=== PATIENT | female | born 1985 ===

== ENCOUNTER → 2020-02-25 12:57 | Outpatient (BNVA) | payer OTHER, SELFPAY | PROVIDERS: Visit Provider Physician Assistant | DX: Z76.89 Persons encountering health services in other specified circumstances (principal) ==

== ENCOUNTER 2020-03-17 07:04 | Outpatient (REF) | payer OTHER, SELFPAY ==
[2020-03-17 11:16] LABS: MANUAL DIFF FLAG NO
[2020-03-17 11:23] LABS: Basophils Percent Auto 0.6 % (0-2); Eosinophils Absolute Auto 0.4 X10*3/uL (0.0-0.4); Eosinophils Percent Auto 5.5 % (0-4); Hematocrit 41.9 % (37-47); Imm Gran Abs Auto 0.01 X10*3/uL (0.00-0.03); Imm Gran Pct Auto 0.1 % (0.0-0.4); Lymphocytes Percent Auto 30.1 % (20-40); Mean Corpuscular Hemoglobin 25.6 pg (27.0-33.0); Mean Corpuscular Volume 82.6 fL (80-98); Mean Platelet Volume 10.3 fL (9.4-12.3); Monocytes Absolute Auto 0.3 X10*3/uL (0.1-1.2); Monocytes Percent Auto 4.7 % (2-11); Platelet Count 391 X10*3/uL (160-400); Red Blood Count 5.07 X10*6/uL (4.20-5.50); Red Cell Distribution Width 13.3 % (11.0-16.0); White Blood Count 6.8 X10*3/uL (4.8-10.8)
[2020-03-17 12:10] LABS: Alanine Aminotransferase 12 U/L (0-31); Albumin Level 4.5 g/dL (3.5-5.0); Alkaline Phosphatase 89 U/L (39-117); Anion Gap 14 (12-20); Aspartate Amino Transferase 15 U/L (5-31); Bilirubin Direct 0.2 mg/dL (0.0-0.5); Bilirubin Total 0.6 mg/dL (0.0-1.0); Blood Urea Nitrogen 16 mg/dL (9-16); Calcium 8.9 mg/dL (8.4-10.2); Carbon Dioxide 27 mmol/L (22-29); Chloride 103 mmol/L (96-108); Cholesterol 207 mg/dL; Estimated Glomerular Filt Rate > 60; Glucose Fasting 119 mg/dL (60-99); HDL Cholesterol 46 mg/dL; LDL Cholesterol Calculated 131 mg/dl; Potassium 4.1 mmol/l (3.3-5.1); Sodium 140 mmol/L (135-145); Total Protein 7.7 g/dL (6.5-8.0); Triglycerides 154 mg/dL
[2020-03-17 12:23] LABS: TSH reflex Free T4 2.04 mIU/mL (0.32-4.0)
== END 2020-03-17 07:05 | disposition home or self-care (01) ==
LOC: HO.HMGCLDS 07:04
PROVIDERS: PCP Internal Medicine; Visit Provider Internal Medicine
DX: Z00.01 Encounter for general adult medical examination with abnormal findings (principal); E66.9 Obesity, unspecified; R03.0 Elevated blood-pressure reading, without diagnosis of hypertension
CPT/HCPCS: 36415; 80048; 80061; 80076; 84443; 85025

== ENCOUNTER 2020-03-17 08:00 | Outpatient (RCR) | payer OTHER, SELFPAY ==
--- NOTE | 2020-03-07 14:25 | MHC.OT.OEV ---
[address] [phone] F: [phone] Occupational Therapy Evaluation Diagnosis: Right elbow pain Date of Onset: 12/20/19 Date of Surgery: Attending Provider: Roland Harding PA-C Prescribed Treatment: Eval and Treat MD Follow Up Appointment: History of Current Condition: 34 year old female w/ hx of right elbow injury, has been working from home over the past year due to COVID, now w/ worsening right elbow pain. 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 Living Situation, Family and/or Social Support: Lives alone, Ind w/ daily activities Current Level of Function and Occupation Self Care, Employment, Leisure: Pain in elbow w/ stirring, scrubbing things (dishes, tub), lifting the laundry basket, carrying groceries Sleep: Improved sleep after positional changes (removed pillows) Driving: Using left hand mostly for driving due to pain w/ steering Vision: Balance: Pain Assessment Pain Score: 2 Pain Scale Used: Numeric (0 - 10) Pain Location and Description: Difficulty pin-pointing area of discomfort, some tenderness to palpate right dorsal forearm Report ache is posterior elbow/lateral elbow and radiates to shoulder at times Aggravating Factors: Gripping, lifting, pulling Alleviating Factors: Motrin for relief 400mg dose 1-2 x/day Skin and Soft Tissue Assessment Skin and Soft Tissue: Comments: Nerve assessment Ulnar Nerve: Right Impaired Median Nerve: Radial Nerve: Comments: Sensory Assessment Temperature: Light Touch: Proprioception: Vibration: Comments: Edema Assessment Upper Extremity: WNL Lower Extremity: WNL Comments: Dexterity Assessment Dexterity: WNL Comments: Special Tests Comments: AROM(PROM) Strength Cervical Cervical Flexion: Cervical Extension: Cervical Lateral Flexion: Cervical Rotation: Comments: WNL Shoulder Flexion: Extension: Abduction: Internal Rotation: External Rotation: Comments: WNL Flexion: Extension: Abduction: Internal Rotation: External Rotation: Comments: Elbow Flexion: Extension: Pronation: Supination: Comments: WNL Flexion: Extension: Pronation: Supination: Comments: Wrist Flexion: Extension: Ulnar Deviation: Radial Deviation: Comments: WNL Flexion: Extension: Ulnar Deviation: Radial Deviation: Comments: Thumb Thumb CMC Flexion: Thumb MCP Flexion: Thumb IP Flexion: Radial Abduction: Palmar Abduction: [place] (Kapandji 0-10): Comments: WNL Digits Index MCP: PIP: DIP: Long MCP: PIP: DIP: Ring MCP: PIP: DIP: Small MCP: PIP: DIP: Comments: WNL Gross Grasp: Right 20 Left 35 Lateral Pinch: Right 10 Left 14 Two-Point Pinch: Right 4 Left 7 Three-Jaw Sergio: Right 7 Left 9 Comments: Patient Education Primary Language: Nauruan Reflow Operator Required: No Current Knowledge: Understands information with skills for self-management Teaching Method: Handouts Verbal Education Needs Identified on Evaluation: ADL's Disease Information Equipment Use Exercise Pain Safety How did patient/family demonstrate learning? Patient demonstrates Patient verbalizes Barriers to Learning: None Readiness for Learning: Accepting Who was educated? 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 She has discomfort w/ gripping, lifting, prolonged work on laptop and driving. 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 ROM, edema and sensation WFL. She will benefit from brief course of OT for workstation ergonomic education, activity modification and joint protection, and HEP w/ stretch and strengthening. STG Duration: 3 weeks Short Term Goals: Ind w/ HEP Pt to complete home workspace assessment and make changes as needed Pt to increase frequency of breaks and stretches throughout the day to every 1-2 hours Pt to report decrease in symptoms due to changes QuickDASH score <30 pts LTG Duration: Correction Goals: Frequency and Duration: The patient will be seen 1x/wk for 3 weeks Treatment Plan: Therapeutic Exercise Therapeutic Activity Home Exercise Program Patient Education ADL Training MHP Cold Packs Soft Tissue Mobilization Kinesiotaping Electronically Signed By: Pili Jimenez OTR/L Reviewed/agree with student documentation: N/A Therapist: Please sign and return to therapist, Thank you for your referral.
--- NOTE | 2020-03-17 08:47 | MHC.OT.DC ---
[address] [phone] F: [phone] Occupational Therapy Discharge Note Provider: DEDRA BULLARD Diagnosis: Right elbow pain Date of Surgery: Date of Evaluation: 03/07/20 Date of Discharge: Treatments to Date: 2 Cancellations to Date: No Shows to Date: Discharge Status: Achieved Goals Improved Function Independent with HEP Discharge Summary: Pt SEEN FOR RIGHT ELBOW PAIN. NOW PAINFREE WITH IMPLIMENTING UE EXERCISES AND LAPTOP ERGONOMIC RECOMMENDATIONS. Pt PAINFREE. 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
== END 2020-03-17 08:46 | disposition other institution (70) ==
LOC: HO.OT 08:00
PROVIDERS: Visit Provider Physician Assistant
DX: M77.8 Other enthesopathies, not elsewhere classified (principal)
CPT/HCPCS: 97110; 97165

== ENCOUNTER 2020-04-19 10:53 | Outpatient (REF) | payer OTHER, SELFPAY ==
[2020-04-20 08:36] LABS: HBc Num1 0.09 S/CO (0.00-0.79); HIV AB/AG Nonreactive (Nonreactive); HIV Num 1 0.07 S/CO (0.00-0.99); Hepatitis B Core Antibody Nonreactive (Nonreactive)
[2020-04-20 08:37] LABS: Syphilis Screen Nonreactive (Nonreactive)
[2020-04-20 08:56] LABS: ~HepC Num1 0.29 S/CO (0.00-0.79); ~Hepatitis C Antibody Nonreactive (Nonreactive)
[2020-04-20 20:37] LABS: C. trachomatis RNA TMA NOT DETECTED (NOT DETECTED); N. gonorrhoeae RNA TMA NOT DETECTED (NOT DETECTED)
[2020-04-21 18:26] LABS: HPV mRNA E6/E7 rflx Not Detected (Not Detected)
== END 2020-04-19 10:54 | disposition home or self-care (01) ==
LOC: HO.LAB 10:53
PROVIDERS: PCP Internal Medicine; Visit Provider Advanced Practice Midwife
DX: Z01.419 Encounter for gynecological examination (general) (routine) without abnormal findings (principal); Z30.09 Encounter for other general counseling and advice on contraception; Z11.51 Encounter for screening for human papillomavirus (HPV); N88.9 Noninflammatory disorder of cervix uteri, unspecified; Z20.2 Contact with and (suspected) exposure to infections with a predominantly sexual mode of transmission; Z80.0 Family history of malignant neoplasm of digestive organs
CPT/HCPCS: 36415; 86704; 86780; 86803; 87389; 87491; 87591; 87624; 88142

== ENCOUNTER 2020-05-04 08:30 | Outpatient (REF) | payer OTHER, SELFPAY | END 2020-05-04 08:31 | disposition home or self-care (01) | LOC: HO.LNP 08:30 | PROVIDERS: PCP Internal Medicine; Visit Provider Obstetrics & Gynecology | DX: N88.9 Noninflammatory disorder of cervix uteri, unspecified (principal) | CPT/HCPCS: 57454; 88305 ==

== ENCOUNTER → 2020-05-18 12:00 | Outpatient (BNVA) | payer OTHER, SELFPAY | PROVIDERS: PCP Internal Medicine; Visit Provider Obstetrics & Gynecology | DX: Z32.02 Encounter for pregnancy test, result negative (principal) ==

== ENCOUNTER 2020-07-08 09:05 | Outpatient (REF) | payer OTHER, SELFPAY ==
[2020-07-08 11:59] LABS: Glucose Fasting 108 mg/dL (60-99)
[2020-07-08 13:07] LABS: Estimated Average Glucose 126 mg/dL
[2020-07-09 10:20] LABS: CT PCR NOT DETECTED (Not Detect.); NG PCR NOT DETECTED (Not Detect.)
== END 2020-07-08 09:06 | disposition home or self-care (01) ==
LOC: HO.HMGCLDS 09:05
PROVIDERS: Advanced Practice Midwife; PCP Internal Medicine; Visit Provider Internal Medicine
DX: Z11.3 Encounter for screening for infections with a predominantly sexual mode of transmission (principal); Z20.2 Contact with and (suspected) exposure to infections with a predominantly sexual mode of transmission; E66.9 Obesity, unspecified; R73.03 Prediabetes
CPT/HCPCS: 36415; 82947; 83036; 87491; 87591

== ENCOUNTER → 2020-09-26 15:13 | Outpatient (BNVA) | payer OTHER, SELFPAY | PROVIDERS: PCP Internal Medicine; Visit Provider Advanced Practice Midwife ==

== ENCOUNTER 2020-10-28 10:05 | Outpatient (REF) | payer OTHER, SELFPAY ==
[2020-10-28 11:40] LABS: Estimated Average Glucose 117 mg/dL; Hemoglobin A1c % 5.7 %
== END 2020-10-28 10:06 | disposition home or self-care (01) ==
LOC: HO.HMGCLDS 10:05
PROVIDERS: PCP Internal Medicine; Visit Provider Internal Medicine
DX: R73.03 Prediabetes (principal); E66.3 Overweight
CPT/HCPCS: 36415; 83036

== ENCOUNTER 2021-02-23 09:13 | Outpatient (REF) | payer OTHER, SELFPAY ==
[2021-02-23 11:42] LABS: Binax Internal Control QC Valid; Binax Now Covid-19 Ag Negative (Negative)
== END 2021-02-23 09:14 | disposition home or self-care (01) ==
LOC: HO.HMGCLDS 09:13
PROVIDERS: Visit Provider Internal Medicine
DX: Z20.822 Contact with and (suspected) exposure to COVID-19 (principal)
CPT/HCPCS: 36415; C9803

== ENCOUNTER 2021-04-24 09:26 | Outpatient (REF) | payer OTHER, SELFPAY ==
[2021-04-25 00:01] LABS: CT PCR NOT DETECTED (Not Detect.); NG PCR NOT DETECTED (Not Detect.)
== END 2021-04-24 09:27 | disposition home or self-care (01) ==
LOC: HO.LAB 09:26
PROVIDERS: PCP Internal Medicine; Visit Provider Advanced Practice Midwife
DX: Z30.41 Encounter for surveillance of contraceptive pills (principal); Z20.2 Contact with and (suspected) exposure to infections with a predominantly sexual mode of transmission
CPT/HCPCS: 87491; 87591

== ENCOUNTER 2021-08-28 08:57 | Outpatient (REF) | payer OTHER, SELFPAY ==
[2021-08-28 11:16] LABS: MANUAL DIFF FLAG NO
[2021-08-28 11:24] LABS: Basophils Percent Auto 0.4 % (0-2); Eosinophils Absolute Auto 0.4 X10*3/uL (0.0-0.4); Eosinophils Percent Auto 4.8 % (0-4); Hematocrit 40.3 % (37.0-47.0); Imm Gran Abs Auto 0.02 X10*3/uL (0.00-0.03); Imm Gran Pct Auto 0.3 % (0.0-0.4); Lymphocytes Absolute Auto 2.2 X10*3/uL (1.2-4.9); Lymphocytes Percent Auto 28.7 % (20-40); Mean Corpuscular HGB Conc 32.3 g/dl (31.0-35.0); Mean Corpuscular Volume 83.6 fL (80.0-98.0); Mean Platelet Volume 10.4 fL (9.4-12.3); Monocytes Absolute Auto 0.4 X10*3/uL (0.1-1.2); Monocytes Percent Auto 4.9 % (2-11); Neutrophils Absolute Auto 4.6 x10*3/uL (2.0-8.3); Neutrophils Percent Auto 60.9 % (45-73); Platelet Count 358 X10*3/uL (160-400); Red Blood Count 4.82 X10*6/uL (4.20-5.50); Red Cell Distribution Width 12.4 % (11.0-16.0); White Blood Count 7.5 X10*3/uL (4.8-10.8)
[2021-08-28 11:36] LABS: Estimated Average Glucose 123 mg/dL; Hemoglobin A1c % 5.9 %
[2021-08-28 12:10] LABS: Alanine Aminotransferase 7 U/L (0-31); Albumin Level 4.2 g/dL (3.5-5.0); Alkaline Phosphatase 69 U/L (39-117); Anion Gap 12 (12-20); Aspartate Amino Transferase 12 U/L (5-31); Bilirubin Total 0.2 mg/dL (0.0-1.0); Blood Urea Nitrogen 13 mg/dL (9-16); Calcium 9.3 mg/dL (8.4-10.2); Carbon Dioxide 24 mmol/L (22-29); Chloride 106 mmol/L (96-108); Estimated Glomerular Filt Rate > 60; Glucose Random 120 mg/dL (60-115); Potassium 4.2 mmol/L (3.3-5.1); Sodium 138 mmol/L (135-145); Total Protein 7.4 g/dL (6.5-8.0)
== END 2021-08-28 08:58 | disposition home or self-care (01) ==
LOC: HO.HMGCLDS 08:57
PROVIDERS: PCP Internal Medicine; Visit Provider Internal Medicine
DX: R11.2 Nausea with vomiting, unspecified (principal); R73.03 Prediabetes
CPT/HCPCS: 36415; 80053; 83036; 85025

== ENCOUNTER 2023-07-23 15:10 | Outpatient (AMB) | payer OTHER, SELFPAY ==
--- NOTE | 2023-07-23 15:15 | A.OFFPC_ITS ---
Vital Signs 07/23/23 15:16 Height 5 ft 8 in Weight 210 lb BMI 31.9 BP 130/72 Blood Pressure Location Rt brachial Position Sitting Pulse 97 Pulse Source Pulse Oximeter Pulse Oximetry (%) 97 Oxygen Delivery Method Room Air Intake Visit Reasons: phy Allergies No Known Allergies Allergy (Verified 07/23/23 15:18) Medication List - Last Reconciled 07/23/23 by Nathalie Estrada MD No Known Home Meds Tobacco use date assessed: 07/23/23 Dental Screening Dental Screen Date: 07/23/23 Did you have a dental visit in the last 12 months?: Yes Did you have a dental problem in the last 6 months where you did not have access to dental care?: No Was dental information given to patient?: Patient has dentist HPI krystyna HPI Details Patient is a 37-year-old female came in today for physical examination Patient says that since she stopped taking control she has been breaking out with acne all over her body She is requesting rheumatology referral. She will call to OBGYN follow-up appointment Lab order placed to be done fasting patient is prediabetic and prehypertensive And she has recently gained some weight as well She is trying to lose with diet-controlled I have offered her appointment with the dietitian which she has declined at this time. She has been feeling anxious, there is a lot of stress going on around at home she tells me She would like to have therapy started, she will meet with our behavior health coordinator today [facility] Medical History FH: colon cancer Obesity (BMI 30.0-34.9) Pain in right elbow Surgical History History of colonoscopy Family History Father Diabetes mellitus Mother Diabetes mellitus HTN (hypertension) Paternal Grandmother Colon cancer Paternal Grandfather Colon cancer Paternal Aunt Colon cancer Brother No problems noted. Brother No problems noted. Sister No problems noted. Sister No problems noted. Other Mental health disorder Substance use disorder Social History Housing: Condominium Alcohol intake: current Alcohol intake frequency: holidays/special occasions only Patient Tobacco Use Status: Never used Tobacco e-Cigarette/Vaping Use: Never Used Second Hand Smoke Exposure: No Current occupational status: employed Cognitive needs: No Hearing needs: No Vision needs: Yes Female Reproductive History Menstrual Age of Menarche: 13 Questionnaire PHQ-9 Over the last 2 weeks, how often have you been bothered by any of the following problems? 1. Little interest or pleasure in doing things: not at all 2. Feeling down, depressed, or hopeless: not at all 3. Trouble falling or staying asleep, or sleeping too much: not at all 4. Feeling tired or having little energy: not at all 5. Poor appetite or overeating: not at all 6. Feeling bad about yourself - or that you are a failure or have let yourself or your family down: not at all 7. Trouble concentrating on things, such as reading the newspaper or watching television: not at all 8. Moving or speaking so slowly that other people could have noticed. Or the opposite - being so fidgety or restless that you have been moving around a lot more than usual: not at all 9. Thoughts that you would be better off or of hurting yourself in some way: not at all Total score: 0 Depression Screening Interpretation: Negative Depression Screening Done: Yes 30533 - PHQ-9 Billing: Yes Source: Developed by Drs. Anthony Acharya, Ciera Reynolds, Candelario Carlos and colleagues, with an educational evelyn from [employer]. Thrive Questionnaire Date Thrive assessed: 07/23/23 I am a: Patient What is your living situation today?: I have a steady place to live Within the past 12 months, did the food you bought not last and you didn't have the money to get more?: Never true Within the past 12 months, did you worry whether your food would run out before you got money to buy more?: Never true Do you have trouble paying for medicines?: No Do you have trouble getting transportation to medical appointments?: No Do you have trouble paying your heating and electricity bill?: No Do you have trouble taking care of your child, family member or friend?: No Do you have trouble with day-to-day activities such as bathing, preparing meals, shopping, managing finances, etc.?: No Are you currently unemployed and looking for a job?: No Are you interested in more education?: No Please select the resources that you would like help with: None Currently or been in a relationship where the following occur: no concerns reported THRIVE Score: 0 AUDIT C Alcohol Use Questionnaire (AUDIT-C) 1. How often do you have a drink containing alcohol?: Monthly or less 2. How many drinks containing alcohol do you have on a typical day when you are drinking?: 1 or 2 3. How often do you have six or more drinks on one occasion?: Never Total Score: 1 Score Reviewed/Action Taken: Yes SRIDHAR-7 AMB Questionnaire SRIDHAR-7 Date SRIDHAR - 7 assessed: 07/23/23 Feeling nervous, anxious, or on edge: 1 = Several days Not being able to stop or control worryin = Several days Worrying too much about different things: 1 = Several days Trouble relaxin = Several days Being so restless that it is hard to sit still: 0 = Not at all Becoming easily annoyed or irritable: 0 = Not at all Feeling afraid as if something awful might happen: 0 = Not at all Total SRIDHAR-7 score (0-4 normal; 5-9 mild; 10-14 moderate; 15-21 severe): 4 Source: Developed by Drs. Anthony Acharya, Ciera Reynolds, Candelario Carlos and colleagues, with an educational evelyn from [employer]. SRIDHAR-7 Assessment Billing SRIDHAR-7 Assessment Tool: SRIDHAR-7 Assessment 74575 Review of Systems Const Denies chills, Denies fever(s) and Denies headache(s) Eyes Denies blurry vision ENT Denies headache(s), Denies nasal discharge, Denies nasal obstruction, Denies odynophagia and Denies sinus pain Card Denies chest pain at rest and Denies chest pain with activity Resp Denies cough and Denies hemoptysis GI Denies diarrhea, Denies odynophagia, Denies vomiting and Denies hematemesis Reports as per HPI Musc Denies abnormal gait Skin/Breast Reports as per HPI Neuro Denies Neuro-related abnormal movements, Denies Abnormal speech present, Denies abnormal gait, Denies headache(s) and Denies Sensory deficit (Neuro) Psych Denies mood swings and Denies paranoia Endo Reports as per HPI Serafin/Lymph Reports as per HPI Aller/Immun Reports as per HPI Physical exam (Primary Care) Vital Signs: Last Vital Signs Pulse 97 07/23/23 15:16 BP 130/72 07/23/23 15:16 Pulse Ox 97 07/23/23 15:16 Oxygen Delivery Method Room Air 07/23/23 15:16 BMI result Body Mass Index 31.9 Tobacco/Smoking Status: Tobacco use Status Tobacco use date assessed 07/23/23 07/23/23 15:19 Patient Tobacco Use Status Never used Tobacco 07/23/23 15:19 e-Cigarette/Vaping Use Never Used 07/23/23 15:19 PHQ-9: PHQ-9 Score PHQ-9: Total score 0 07/23/23 15:48 Depression Screening Interpretation: Negative Thrive Assessment: Date of Thrive Assessment Date Thrive assessed 07/23/23 07/23/23 15:19 Currently or been in a relationship where the following occur: no concerns reported Const General: cooperative, comfortable and no acute distress Orientation/consciousness: patient oriented x3 HENMT Head: Yes normocephalic and Yes atraumatic Eyes General: appearance normal, both eyes and all related structures Pupils: Equal, round and reactive pupils present EOM: EOMs intact bilaterally Neck Neck: Yes supple and No lymphadenopathy Thyroid: Thyroid normal Lymphatic: no lymphadenopathy noted Chest Breast/axilla palpation: normal palpation of the breasts Resp Effort & Inspection: normal respiratory effort and able to speak in complete sentences Auscultation: clear to auscultation bilaterally Cardio Heart sounds: S1 normal heart sound present and S2 normal heart sound present GI Palpation (GI): Soft to palpation and nontender Auscultation: normal bowel sounds General: Yes no CVA tenderness Back/Spine/Pelvis Back: no CVA tenderness Skin General skin exam: elasticity normal and turgor normal Neuro General: patient oriented x3 and gait normal Cranial nerves: Yes Equal, round and reactive pupils present Speech: No Abnormal speech present Sensory Exam: No Sensory deficit (Neuro) Coordination: tandem gait normal and Romberg test negative Extrem General: Yes normal exam except as noted and No edema Assessment and Plan Assessment & Plan (1) Encounter for general adult medical examination with abnormal findings: Code(s): Z00.01 - Encounter for general adult medical examination with abnormal findings (2) Pre-diabetes: Code(s): R73.03 - Prediabetes (3) Acne: Code(s): L70.9 - Acne, unspecified Qualifiers: Acne type: unspecified acne Qualified Code(s): L70.9 - Acne, unspecified (4) Anxiety, generalized: Code(s): F41.1 - Generalized anxiety disorder Plan Patient is a 37-year-old female came in today for physical examination Patient says that since she stopped taking control she has been breaking out with acne all over her body She is requesting rheumatology referral. She will call to OBGYN follow-up appointment Lab order placed to be done fasting patient is prediabetic and prehypertensive And she has recently gained some weight as well She is trying to lose with diet-controlled I have offered her appointment with the dietitian which she has declined at this time. She has been feeling anxious, there is a lot of stress going on around at home she tells me She would like to have therapy started, she will meet with our behavior health coordinator today Orders: Orders Complete Blood Count Auto Diff Today K64.4 - Residual hemorrhoidal skin tags, R73.03 - Prediabetes, Z00.01 - Encounter for general adult medical examination with abnormal findings Lipid Panel Today K64.4 - Residual hemorrhoidal skin tags, R73.03 - Prediabetes, Z00.01 - Encounter for general adult medical examination with abnor mal findings Hemoglobin A1c Today R73.03 - Prediabetes Comprehensive [place]. Panel Fast Today K64.4 - Residual hemorrhoidal skin tags, R73.03 - Prediabetes, Z00.01 - Encounter for general adult medical examination with abnormal findings TSH reflex Free T4 Today K64.4 - Residual hemorrhoidal skin tags, R73.03 - Prediabetes, Z00.01 - Encounter for general adult medical examination with abnormal findings Referrals Dermatology Referral L70.9 - Acne, unspecified Coding Level of Care Code Est Pt Level 3 (42313) Est Pt Prev Care 18-39y(61644) Diagnoses Encounter for general adult medical examination with abnormal findings Z00.01 Pre-diabetes R73.03 Acne, unspecified acne type L70.9 Acne type: unspecified acne Anxiety, generalized F41.1 Additional Codes SRIDHAR-7 Assessment Billing - SRIDHAR-7 Assessment Tool: SRIDHAR-7 Assessment 32953 ([id number])
[2023-07-23 15:16] VITALS: BP 130/72; PULSE 97; O2SAT 97; BMI 31.9
== END 2023-07-23 16:05 | disposition home or self-care (01) ==
PROVIDERS: PCP Internal Medicine; Visit Provider Internal Medicine
DX: Z00.00 Encounter for general adult medical examination without abnormal findings (principal); R73.03 Prediabetes; L70.9 Acne, unspecified; F41.1 Generalized anxiety disorder
CPT/HCPCS: 99395

== ENCOUNTER 2023-07-29 07:29 | Outpatient (REF) | payer OTHER, SELFPAY ==
[2023-07-29 10:15] LABS: MANUAL DIFF FLAG NO
[2023-07-29 10:30] LABS: Basophils Percent Auto 0.3 % (0-2); Eosinophils Absolute Auto 0.2 X10*3/uL (0.0-0.4); Eosinophils Percent Auto 2.8 % (0-4); Hematocrit 39.8 % (37.0-47.0); Hemoglobin 12.8 g/dl (12.0-16.0); Imm Gran Abs Auto 0.03 X10*3/uL (0.00-0.03); Imm Gran Pct Auto 0.4 % (0.0-0.4); Lymphocytes Absolute Auto 2.2 X10*3/uL (1.2-4.9); Lymphocytes Percent Auto 28.1 % (20-40); Mean Corpuscular HGB Conc 32.2 g/dl (31.0-35.0); Mean Corpuscular Hemoglobin 26.2 pg (27.0-33.0); Mean Corpuscular Volume 81.4 fL (80.0-98.0); Monocytes Absolute Auto 0.5 X10*3/uL (0.1-1.2); Monocytes Percent Auto 6.3 % (2-11); Neutrophils Absolute Auto 4.8 x10*3/uL (2.0-8.3); Neutrophils Percent Auto 62.1 % (45-73); Platelet Count 390 X10*3/uL (160-400); Red Blood Count 4.89 X10*6/uL (4.20-5.50); Red Cell Distribution Width 13.2 % (11.0-16.0); White Blood Count 7.8 X10*3/uL (4.8-10.8)
[2023-07-29 10:47] LABS: Estimated Average Glucose 137 mg/dL; Hemoglobin A1c % 6.4 % (<6.0)
[2023-07-29 11:11] LABS: Alanine Aminotransferase 18 U/L (0-31); Albumin Level 4.2 g/dL (3.5-5.0); Alkaline Phosphatase 101 U/L (39-117); Anion Gap 16 (12-20); Aspartate Amino Transferase 17 U/L (5-31); Bilirubin Total 0.2 mg/dL (0.0-1.0); Blood Urea Nitrogen 16 mg/dL (9-16); Calcium 9.8 mg/dL (8.4-10.2); Carbon Dioxide 23 mmol/L (22-29); Chloride 102 mmol/L (96-108); Cholesterol 213 mg/dL (<200); Estimated Glomerular Filt Rate > 60; Glucose Fasting 147 mg/dL (60-99); HDL Cholesterol 41 mg/dL (>40); LDL Cholesterol Calculated 103 mg/dL (<100); Potassium 3.8 mmol/L (3.3-5.1); Sodium 137 mmol/L (135-145); Total Protein 7.6 g/dL (6.5-8.0); Triglycerides 348 mg/dL (<150)
[2023-07-29 11:12] LABS: TSH reflex Free T4 2.68 uIU/mL (0.32-4.0)
== END 2023-07-29 07:30 | disposition home or self-care (01) ==
LOC: HO.HMGCLDS 07:29
PROVIDERS: PCP Internal Medicine; Visit Provider Internal Medicine
DX: Z00.01 Encounter for general adult medical examination with abnormal findings (principal); R73.03 Prediabetes; K64.4 Residual hemorrhoidal skin tags
CPT/HCPCS: 36415; 80053; 80061; 83036; 84443; 85025

== ENCOUNTER 2023-08-01 08:39 | Outpatient (AMB) | payer OTHER, SELFPAY ==
--- NOTE | 2023-08-01 09:01 | A.OFFPC_ITS ---
Intake Visit Reasons: Discuss recent results~ [phone] Allergies No Known Allergies Allergy (Verified 08/01/23 09:01) Medication List - Last Reconciled 08/01/23 by Nathalie Estrada MD No Known Home Meds Tobacco use date assessed: 08/01/23 Dental Screening Dental Screen Date: 08/01/23 Did you have a dental visit in the last 12 months?: Yes Did you have a dental problem in the last 6 months where you did not have access to dental care?: No Was dental information given to patient?: Patient has dentist HPI Discuss recent results~ [phone] HPI Details Patient is a 37-year-old female this is a telemedicine video conference Patient had labs done recently her hemoglobin A1c came back at 6.4 It has been below that before. We talked about diabetic diet, I will be booking her appointment with the dietitian to discuss it further. Her triglycerides are also above 300, we talked about the risk of high triglycerides We will continue to monitor that, lab order placed to be done again in 3 or 4 months She has an appointment coming up with a die cutter today, patient is complaining of slight burning when she urinates There is an order for urinalysis in the chart already, however she will talk to the gynecology provider if they can check urine in the office. Follow-up 4 months [facility] Medical History FH: colon cancer Obesity (BMI 30.0-34.9) Pain in right elbow Surgical History History of colonoscopy Family History Father Diabetes mellitus Mother Diabetes mellitus HTN (hypertension) Paternal Grandmother Colon cancer Paternal Grandfather Colon cancer Paternal Aunt Colon cancer Brother No problems noted. Brother No problems noted. Sister No problems noted. Sister No problems noted. Other Mental health disorder Substance use disorder Social History Housing: Condominium Alcohol intake: current Alcohol intake frequency: holidays/special occasions only Patient Tobacco Use Status: Never used Tobacco e-Cigarette/Vaping Use: Never Used Second Hand Smoke Exposure: No Current occupational status: employed Cognitive needs: No Hearing needs: No Vision needs: Yes Female Reproductive History Menstrual Age of Menarche: 13 Questionnaire Thrive Questionnaire Date Thrive assessed: 07/23/23 AUDIT C Alcohol Use Questionnaire (AUDIT-C) 1. How often do you have a drink containing alcohol?: Monthly or less 2. How many drinks containing alcohol do you have on a typical day when you are drinking?: 1 or 2 3. How often do you have six or more drinks on one occasion?: Never Total Score: 1 Score Reviewed/Action Taken: Yes SRIDHAR-7 AMB Questionnaire SRIDHAR-7 Date SRIDHAR - 7 assessed: 07/23/23 Source: Developed by Drs. Anthony Acharya, Ciera Reynolds, Candelario Carlos and colleagues, with an educational evelyn from [employer]. Review of Systems Const Denies chills and Denies fever(s) ENT Denies epistaxis and Denies nasal discharge Card Denies chest pain Resp Denies chest congestion, Denies cough and Denies hemoptysis GI Denies diarrhea and Denies nausea Skin/Breast Denies rash Neuro Reports no additional complaints Psych Reports no additional complaints Endo Reports no additional complaints Physical exam (Primary Care) Tobacco/Smoking Status: Tobacco use Status Tobacco use date assessed 08/01/23 08/01/23 09:02 Patient Tobacco Use Status Never used Tobacco 08/01/23 09:02 e-Cigarette/Vaping Use Never Used 08/01/23 09:02 Thrive Assessment: Date of Thrive Assessment Date Thrive assessed 07/23/23 08/01/23 09:02 Telehealth Telehealth Telehealth Platform: [facility] Location of provider rendering services: practice address Location of patient: address on file Patient Identification confirmed using: Name, : Yes Telehealth method: video Patient verbally consented to treatment: Yes Patient verbally consented to billing insurance company: Yes Patient informed of any privacy concerns related to visit: Yes Minutes spent on Phone/Video with Pt.: 13 Assessment and Plan Assessment & Plan (1) Diet-controlled diabetes mellitus: Code(s): E11.9 - Type 2 diabetes mellitus without complications (2) Lipid disorder: Code(s): E78.9 - Disorder of lipoprotein metabolism, unspecified Plan Patient is a 37-year-old female this is a telemedicine video conference Patient had labs done recently her hemoglobin A1c came back at 6.4 It has been below that before. We talked about diabetic diet, I will be booking her appointment with the dietitian to discuss it further. Her triglycerides are also above 300, we talked about the risk of high triglycerides We will continue to monitor that, lab order placed to be done again in 3 or 4 months She has an appointment coming up with a die cutter today, patient is complaining of slight burning when she urinates There is an order for urinalysis in the chart already, however she will talk to the gynecology provider if they can check urine in the office. Follow-up 4 months Orders: Orders Comprehensive [place]. Panel Fast 3 Months E11.9 - Type 2 diabetes mellitus without complications, E78.9 - Disorder of lipoprotein metabolism, unspecified Hemoglobin A1c 3 Months E11.9 - Type 2 diabetes mellitus without complications, E78.9 - Disorder of lipoprotein metabolism, unspecified Microalbumin, Random (w Creat) 3 Months E11.9 - Type 2 diabetes mellitus without complications, E78.9 - Disorder of lipoprotein metabolism, unspecified Lipid Panel 3 Months E11.9 - Type 2 diabetes mellitus without complications, E78.9 - Disorder of lipoprotein metabolism, unspecified Coding Level of Care Code Tele Est Pt Level 3 (90303) Diagnoses Diet-controlled diabetes mellitus E11.9 Lipid disorder E78.9
== END 2023-08-01 10:23 | disposition home or self-care (01) ==
LOC: HO.HMGC 08:40
PROVIDERS: PCP Internal Medicine; Visit Provider Internal Medicine
DX: E11.9 Type 2 diabetes mellitus without complications (principal); E78.9 Disorder of lipoprotein metabolism, unspecified
CPT/HCPCS: 99213

== ENCOUNTER 2023-08-01 10:20 | Outpatient (REF) | payer OTHER, SELFPAY | END 2023-08-01 10:21 | disposition home or self-care (01) | LOC: HO.LNP 10:20 | PROVIDERS: PCP Internal Medicine; Visit Provider Advanced Practice Midwife | DX: Z20.2 Contact with and (suspected) exposure to infections with a predominantly sexual mode of transmission (principal) | CPT/HCPCS: 81003 ==

== ENCOUNTER 2023-08-01 10:20 | Outpatient (AMB) | payer OTHER, SELFPAY ==
--- NOTE | 2023-08-01 10:22 | A.OFFVIS_ITS ---
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 Doing well with concerns: external itching and burning, uncertain if condoms are irritating. Diet is not healthy, plans to see a tax manager, and to start exercising. Regular monthly menses x5d, heavier x 2d. She has not interested in control. Currently is sexually active. STI screening offered; she accepts. Denies family history of breast, ovarian or colon cancer. Last pap smear 2020, negative. COUNTS INCLUDE 234 BEDS AT [facility] Medical History FH: colon cancer Obesity (BMI 30.0-34.9) Pain in right elbow Surgical History History of colonoscopy Family History Father Diabetes mellitus Mother Diabetes mellitus HTN (hypertension) Paternal Grandmother Colon cancer Paternal Grandfather Colon cancer Paternal Aunt Colon cancer Brother No problems noted. Brother No problems noted. Sister No problems noted. Sister No problems noted. Other Mental health disorder Substance use disorder Social History Housing: Condominium Alcohol intake: current Alcohol intake frequency: holidays/special occasions only Patient Tobacco Use Status: Never used Tobacco e-Cigarette/Vaping Use: Never Used Second Hand Smoke Exposure: No Current occupational status: employed Cognitive needs: No Hearing needs: No Vision needs: Yes Female Reproductive History Menstrual Age of Menarche: 13 Duration of menses: 3-5 days Date of last menstrual period: 07/10/23 control method: none Total pregnancies: 0 Date of last pap smear: 04/20/20 (negative) History of abnormal pap smear: No Review of Systems Const All systems reviewed & are unremarkable except as noted in HPI and below Reports as per HPI Eyes Reports no additional complaints ENT Reports no additional complaints Card Reports no additional complaints Resp Reports no additional complaints GI Reports as per HPI and Reports no additional complaints Reports as per HPI Musc Reports no additional complaints Skin/Breast Reports as per HPI Neuro Reports no additional complaints Psych Reports no additional complaints Endo Reports no additional complaints Serafin/Lymph Reports no additional complaints Aller/Immun Reports no additional complaints Physical Exam Vital Signs: Last Vital Signs BP 146/80 H 08/01/23 10:23 BMI result Body Mass Index 31.5 Const General: cooperative, healthy appearing, no acute distress, well developed and alert Orientation/consciousness: patient oriented x3 HEENT Head: Yes normal to inspection Eyes General: appearance normal, both eyes and all related structures Neck Neck: Yes normal visual inspection Thyroid: Thyroid normal Chest Chest palpation & inspection: normal inspection of the chest and other (no puckering, dimpling, peau de orange, retraction, discharge, masses) Breast/axilla inspection: normal inspection of the breasts Breast/axilla palpation: normal palpation of the breasts Resp Effort & Inspection: normal respiratory effort GI Inspection: Yes normal to inspection Palpation (GI): Soft to palpation Rectal Exam - Female: deferred General: Yes bladder normal to palpation External Female Exam: normal external appearance and normal appearance of the urethra Speculum Exam - Vagina: normal appearance of the vagina, normal palpation, abnormal vaginal discharge (White thickened clumpy) and erythematous Speculum Exam - Cervix: normal appearance of the cervix and normal palpation Bimanual exam- vagina & uterus: normal bimanual exam, normal palpation, uterine size normal, bladder normal to palpation, normal palpation and non-tender Bimanual Exam- Adnexa, other: no masses Skin General skin exam: no rashes or lesions noted Rashes: no rashes Neuro General: patient oriented x3 Cognition (Neuro): normal cognition Extrem General: Yes normal to inspection Psych Attitude: cooperative Thought process: Normal thought process present Results AMB Urinalysis, Automated UA Leukoctes 0 Sunni/uL Last Edit by ZOYA Hughes on 08/01/23 10:56 UA Nitrite Negative Last Edit by ZOYA Hughes on 08/01/23 10:56 UA Urobilinogen 0 mg/dL Last Edit by Ema Phillips ZOYA on 08/01/23 10:56 UA Protein 0 mg/dL Last Edit by Ema Phillips ZOYA on 08/01/23 10:56 UA pH 6 Last Edit by ZOYA Hughes on 08/01/23 10:56 UA Blood 0 Evert/uL Last Edit by ZOYA Hughes on 08/01/23 10:56 UA Specific Maud 1.010 Last Edit by Ema Phillips ZOYA on 08/01/23 10: 56 UA Ketone Negative Last Edit by Ema Phillips ZOYA on 08/01/23 10:56 UA Bilirubin 0 mg/dL Last Edit by Ema Phillips ZOYA on 08/01/23 10:56 UA Glucose 0 mg/dL Last Edit by Ema Phillips ZOYA on 08/01/23 10:56 Assessment & Plan Assessment & Plan (1) Encounter for well woman exam with routine gynecological exam: Code(s): Z01.419 - Encounter for gynecological examination (general) (routine) without abnormal findings Plan Discussed: Current recommendations for pap smears per ASCCP guidelines. Breast awareness and periodic breast exams. Maintain a healthy lifestyle including a well balanced diet and routine exe rcise. Vaginal yeast found today and treatment initiation with Diflucan. Avoid intimacy until well healed, then if condoms continued to be irritating 1st try a different brand. If still irritated return to the office for further evaluation. Options of non hormonal control reviewed, she is not interested at this time. Other alternatives including withdrawal, spermicides reviewed. Patient verbalizes understanding and agrees to the plan of care. She was given opportunity to ask questions and all questions were answered to the best of my ability. RTO in one year for annual physician gynecologist examination. This note is constructed using voice recognition software. While every effort has been made to ensure accuracy, pen tester errors may have been included. Orders: Orders Hepatitis B Core Antibody Today Z20.2 - Contact with and (suspected) exposure to infections with a predominantly sexual mode of transmission CT NG by PCR Today Z20.2 - Contact with and (suspected) exposure to infections with a predominantly sexual mode of transmission HIV Ab/Ag Today Z20.2 - Contact with and (suspected) exposure to infections with a predominantly sexual mode of transmission Hepatitis C Antibody Reflex Today Z20.2 - Contact with and (suspected) exposure to infections with a predominantly sexual mode of transmission Syphilis Screen Today Z20.2 - Contact with and (suspected) exposure to infections with a predominantly sexual mode of transmission Bacterial Vaginosis Panel Today Z20.2 - Contact with and (suspected) exposure to infections with a predominantly sexual mode of transmission Medications: New fluconazole 150 mg PO ONCE 1 day 1 tab 0RF personal Coding Level of Care Code Est Pt Prev Care 18-39y([id number]) Diagnoses Encounter for well woman exam with routine gynecological exam Z01.419
[2023-08-01 10:23] VITALS: BP 146/80; BMI 31.5
== END 2023-08-01 10:54 | disposition home or self-care (01) ==
LOC: HO.HWS 10:20
PROVIDERS: PCP Internal Medicine; Visit Provider Advanced Practice Midwife
DX: Z01.419 Encounter for gynecological examination (general) (routine) without abnormal findings (principal); N94.9 Unspecified condition associated with female genital organs and menstrual cycle
CPT/HCPCS: 99395

== ENCOUNTER 2023-08-01 11:06 | Outpatient (REF) | payer OTHER, SELFPAY ==
[2023-08-01 12:20] LABS: HBc Num1 0.15 S/CO (0.00-0.79); HIV AB/AG Nonreactive (Nonreactive); HIV Num 1 0.05 S/CO (0.00-0.99); Hepatitis B Core Antibody Nonreactive (Nonreactive); ~HepC Num1 0.76 S/CO (0.00-0.79); ~Hepatitis C Antibody Nonreactive (Nonreactive)
[2023-08-01 12:21] LABS: Syphilis Screen Nonreactive (Nonreactive)
[2023-08-02 03:45] LABS: CT PCR NOT DETECTED (Not Detect.); NG PCR NOT DETECTED (Not Detect.)
[2023-08-02 10:44] LABS: Bacterial Vaginosis PCR NEGATIVE (Negative); Candida Group PCR DETECTED (Not Detect); Candida glab krusei PCR NOT DETECTED (Not Detect); Trichomonas vaginalis PCR NOT DETECTED (Not Detect)
== END 2023-08-01 11:07 | disposition home or self-care (01) ==
LOC: HO.LAB 11:06
PROVIDERS: PCP Internal Medicine; Visit Provider Advanced Practice Midwife
DX: Z20.2 Contact with and (suspected) exposure to infections with a predominantly sexual mode of transmission (principal)
CPT/HCPCS: 0352U; 0353U; 86704; 86780; 86803; 87389

== ENCOUNTER 2023-12-03 11:54 | Outpatient (AMB) | payer OTHER, SELFPAY ==
--- NOTE | 2023-12-03 11:58 | MHC.PC.OV ---
Vital Signs 12/03/23 12:00 Height 5 ft 8 in Weight 202 lb 8 oz BMI 30.8 BP 136/82 Blood Pressure Location Rt brachial Position Sitting Pulse 96 Pulse Source Pulse Oximeter Pulse Oximetry (%) 98 Oxygen Delivery Method Room Air Intake Visit Reasons: 4M F/u~ Allergies No Known Allergies Allergy (Verified 08/01/23 10:25) Medication List - Last Reconciled 12/03/23 by Nathalie Estrada MD escitalopram oxalate 5 mg PO DAILY Tobacco use date assessed: 12/03/23 Dental Screening Dental Screen Date: 12/03/23 Did you have a dental visit in the last 12 months?: No Did you have a dental problem in the last 6 months where you did not have access to dental care?: No Was dental information given to patient?: Patient has dentist HPI 4M F/u~ HPI Details Patient is a 37-year-old female came in today for her 4 month follow-up appointment diabetes Last set of lab was July this year reviewed again Patient is diet-controlled diabetic, last hemoglobin A1c was 6.4 And it is 6.5 today Patient would like to do STD screening today as she had unprotected intimacy Order placed to be done today Elevated triglyceride level, patient was supposed to have labs done before this visit but she forgot She will have them done before her next visit in 4 months BMI is elevated need to lose weight, she is trying Follow-up 4 months [facility] Medical History FH: colon cancer Obesity (BMI 30.0-34.9) Pain in right elbow Surgical History History of colonoscopy Family History Father Diabetes mellitus Mother Diabetes mellitus HTN (hypertension) Paternal Grandmother Colon cancer Paternal Grandfather Colon cancer Paternal Aunt Colon cancer Brother No problems noted. Brother No problems noted. Sister No problems noted. Sister No problems noted. Other Mental health disorder Substance use disorder Social History Housing: Condominium Alcohol intake: current Alcohol intake frequency: holidays/special occasions only Patient Tobacco Use Status: Never used Tobacco e-Cigarette/Vaping Use: Never Used Second Hand Smoke Exposure: No Current occupational status: employed Cognitive needs: No Hearing needs: No Vision needs: Yes Female Reproductive History Menstrual Age of Menarche: 13 Questionnaire PHQ-9 Over the last 2 weeks, how often have you been bothered by any of the following problems? 1. Little interest or pleasure in doing things: not at all 2. Feeling down, depressed, or hopeless: not at all 3. Trouble falling or staying asleep, or sleeping too much: not at all 4. Feeling tired or having little energy: not at all 5. Poor appetite or overeating: not at all 6. Feeling bad about yourself - or that you are a failure or have let yourself or your family down: not at all 7. Trouble concentrating on things, such as reading the newspaper or watching television: not at all 8. Moving or speaking so slowly that other people could have noticed. Or the opposite - being so fidgety or restless that you have been moving around a lot more than usual: not at all 9. Thoughts that you would be better off or of hurting yourself in some way: not at all Total score: 0 Depression Screening Interpretation: Negative Depression Screening Done: Yes 22107 - PHQ-9 Billing: Yes Source: Developed by Drs. Anthony Acharya, Ciera Reynolds, Candelario Carlos and colleagues, with an educational evelyn from [employer]. Thrive Questionnaire Date Thrive assessed: 12/03/23 I am a: Patient What is your living situation today?: I have a steady place to live Within the past 12 months, did the food you bought not last and you didn't have the money to get more?: Often true Within the past 12 months, did you worry whether your food would run out before you got money to buy more?: Often true Do you have trouble paying for medicines?: No Do you have trouble getting transportation to medical appointments?: No Do you have trouble paying your heating and electricity bill?: No Do you have trouble taking care of your child, family member or friend?: No Do you have trouble with day-to-day activities such as bathing, preparing meals, shopping, managing finances, etc.?: No Are you currently unemployed and looking for a job?: No Are you interested in more education?: No Please select the resources that you would like help with: None Currently or been in a relationship where the following occur: No concerns reported THRIVE Score: 2 AUDIT C Alcohol Use Questionnaire (AUDIT-C) 1. How often do you have a drink containing alcohol?: 2-3 times a week 2. How many drinks containing alcohol do you have on a typical day when you are drinking?: 1 or 2 3. How often do you have six or more drinks on one occasion?: Never Total Score: 3 Score Reviewed/Action Taken: Yes SRIDHAR-7 AMB Questionnaire SRIDHAR-7 Date SRIDHAR - 7 assessed: 12/03/23 Feeling nervous, anxious, or on edge: 0 = Not at all Not being able to stop or control worryin = Not at all Worrying too much about different things: 0 = Not at all Trouble relaxin = Not at all Being so restless that it is hard to sit still: 0 = Not at all Becoming easily annoyed or irritable: 0 = Not at all Feeling afraid as if something awful might happen: 0 = Not at all Total SRIDHAR-7 score (0-4 normal; 5-9 mild; 10-14 moderate; 15-21 severe): 0 Source: Developed by Drs. Anthony Acharya, Cirea Reynolds, Candelario Carlos and colleagues, with an educational evelyn from [employer]. SRIDHAR-7 Assessment Billing SRIDHAR-7 Assessment Tool: SRIDHAR-7 Assessment 05681 Review of Systems Const Denies chills and Denies fever(s) ENT Denies epistaxis and Denies nasal discharge Card Denies chest pain Resp Denies chest congestion, Denies cough and Denies hemoptysis GI Denies diarrhea and Denies nausea Skin/Breast Denies rash Neuro Reports no additional complaints Psych Reports no additional complaints Endo Reports no additional complaints Physical exam (Primary Care) Vital Signs: Last Vital Signs Pulse 96 12/03/23 12:00 BP 136/82 12/03/23 12:00 Pulse Ox 98 12/03/23 12:00 Oxygen Delivery Method Room Air 12/03/23 12:00 BMI result Body Mass Index 30.8 Tobacco/Smoking Status: Tobacco use Status Tobacco use date assessed 12/03/23 12/03/23 12:03 Patient Tobacco Use Status Never used Tobacco 12/03/23 11:59 e-Cigarette/Vaping Use Never Used 12/03/23 11:59 PHQ-9: PHQ-9 Score PHQ-9: Total score 0 12/03/23 12:03 Depression Screening Interpretation: Negative Thrive Assessment: Date of Thrive Assessment Date Thrive assessed 12/03/23 12/03/23 12:03 Currently or been in a relationship where the following occur: No concerns reported Const General: cooperative, comfortable and no acute distress Orientation/consciousness: patient oriented x3 HENMT Head: Yes normocephalic Eyes General: appearance normal, both eyes and all related structures Neck Neck: Yes supple Resp Effort & Inspection: normal respiratory effort, no cough and no stridor Cardio Rhythm: regular rhythm Heart sounds: S1 normal heart sound present and S2 normal heart sound present Skin General skin exam: turgor normal Neuro General: patient oriented x3, tone normal and moves all extremities Extrem Right lower extremity: no edema Left lower extremity: no edema Coding Level of Care Code Est Pt Level 3 (15200) Diagnoses Diet-controlled diabetes mellitus E11.9 Lipid disorder E78.9 Screening for STD (sexually transmitted disease) Z11.3 Class 1 obesity due to excess calories with serious comorbidity and body mass index (BMI) of 30.0 to 30.9 in adult E66.811; E66.09; Z68.30 Obesity classification: adult class 1 (BMI 30 - 34.9) Serious obesity comorbidity presence: with serious comorbidity Body mass index: BMI 30.0-30.9 Anxiety and depression F41.9; F32.A Additional Codes SRIDHAR-7 Assessment Billing - SRIDHAR-7 Assessment Tool: SRIDHAR-7 Assessment 21558 ([id number]) Assessment & Plan Assessment & Plan (1) Diet-controlled diabetes mellitus: Code(s): E11.9 - Type 2 diabetes mellitus without complications Category: Medical (2) Lipid disorder: Code(s): E78.9 - Disorder of lipoprotein metabolism, unspecified Category: Medical (3) Screening for STD (sexually transmitted disease): Code(s): Z11.3 - Encounter for screening for infections with a predominantly sexual mode of transmission Category: Medical (4) Obesity due to excess calories: Code(s): E66.09 - Other obesity due to excess calories Category: Medical Qualifiers: Obesity classification: adult class 1 (BMI 30 - 34.9) Serious obesity comorbidity presence: with serious comorbidity Body mass index: BMI 30.0-30.9 Qualified Code(s): E66.811 - Obesity, class 1; E66.09 - Other obesity due to excess calories; Z68.30 - Body mass index [BMI] 30.0-30.9, adult (5) Anxiety and depression: Code(s): F41.9 - Anxiety disorder, unspecified; F32.A - Depression, unspecified Category: Medical Plan Patient is a 37-year-old female came in today for her 4 month follow-up appointment diabetes Last set of lab was July this year reviewed again Patient is diet-controlled diabetic, last hemoglobin A1c was 6.4 And it is 6.5 today Patient would like to do STD screening today as she had unprotected intimacy Order placed to be done today Elevated triglyceride level, patient was supposed to have labs done before this visit but she forgot She will have them done before her next visit in 4 months BMI is elevated need to lose weight, she is trying She is now seeing psychiatrist and therapist and is taking Lexapro 5 mg through them Follow-up 4 months Orders: Orders Hepatitis C Antibody Today Z11.3 - Encounter for screening for infections with a predominantly sexual mode of transmission HIV Ab/Ag Today Z11.3 - Encounter for screening for infections with a predominantly sexual mode of transmission Hepatitis B Surface Antibody Today Z11.3 - Encounter for screening for infections with a predominantly sexual mode of transmission Herpes Simplex Virus Ab IgG Today Z11.3 - Encounter for screening for infections with a predominantly sexual mode of transmission Syphilis Screen Today Z11.3 - Encounter for screening for infections with a predominantly sexual mode of transmission
[2023-12-03 12:00] VITALS: BP 136/82; PULSE 96; O2SAT 98; BMI 30.8
== END 2023-12-03 13:02 | disposition home or self-care (01) ==
PROVIDERS: PCP Internal Medicine; Visit Provider Internal Medicine
DX: E11.9 Type 2 diabetes mellitus without complications (principal); E78.9 Disorder of lipoprotein metabolism, unspecified; Z11.3 Encounter for screening for infections with a predominantly sexual mode of transmission; E66.811 Obesity, class 1; E66.09 Other obesity due to excess calories; Z68.30 Body mass index [BMI] 30.0-30.9, adult; F41.9 Anxiety disorder, unspecified; F32.A Depression, unspecified; Z13.9 Encounter for screening, unspecified

== ENCOUNTER → 2023-12-03 11:54 | Outpatient (BNVA) | payer OTHER, SELFPAY | PROVIDERS: PCP Internal Medicine; Visit Provider Internal Medicine ==

== ENCOUNTER 2023-12-03 12:14 | Outpatient (REF) | payer OTHER, SELFPAY ==
[2023-12-04 08:40] LABS: HBS Num1 3.26 mIU/mL (0-7.99); HIV AB/AG Nonreactive (Nonreactive); HIV Num 1 0.06 S/CO (0.00-0.99); ~HepC Num1 0.95 S/CO (0.00-0.79); ~Hepatitis B Surface Antibody NONREACTIVE (Nonreactive)
[2023-12-04 08:44] LABS: Syphilis Screen Nonreactive (Nonreactive)
[2023-12-04 11:51] LABS: ~HepC Num2 0.85; ~HepC Num3 0.85; ~Hepatitis C Antibody GRAYZONE (Nonreactive)
[2023-12-04 13:14] LABS: Herpes Simplex Type 1 IgG <0.90 index; Herpes Simplex Type 2 IgG <0.90 index
== END 2023-12-03 12:15 | disposition home or self-care (01) ==
LOC: HO.HMGCLDS 12:14
PROVIDERS: PCP Internal Medicine; Visit Provider Internal Medicine
DX: E66.811 Obesity, class 1 (principal); E11.9 Type 2 diabetes mellitus without complications; E78.9 Disorder of lipoprotein metabolism, unspecified; F41.9 Anxiety disorder, unspecified; F32.A Depression, unspecified; Z68.30 Body mass index [BMI] 30.0-30.9, adult; Z20.2 Contact with and (suspected) exposure to infections with a predominantly sexual mode of transmission
CPT/HCPCS: 36415; 83036; 86695; 86696; 86706; 86780; 86803; 87389; 96127

== ENCOUNTER 2023-12-10 08:20 | Outpatient (REF) | payer OTHER, SELFPAY ==
[2023-12-12 05:53] LABS: HCV Log PCR <1.18 NOT DETECTED Log IU/mL (NOT DETECTED); HepC Viral Load <15 NOT DETECTED IU/mL (NOT DETECTED)
== END 2023-12-10 08:21 | disposition home or self-care (01) ==
LOC: HO.LAB 08:20
PROVIDERS: PCP Internal Medicine; Visit Provider Internal Medicine
DX: R89.9 Unspecified abnormal finding in specimens from other organs, systems and tissues (principal)
CPT/HCPCS: 36415; 87522

== ENCOUNTER 2024-03-28 09:23 | Outpatient (REF) | payer OTHER, SELFPAY ==
[2024-03-28 11:11] LABS: Estimated Average Glucose 131 mg/dL; Hemoglobin A1c % 6.2 % (<6.0); Total Hemoglobin (HGBA1C) 3356.1412 umol/L
[2024-03-28 11:30] LABS: Cholesterol 221 mg/dL (<200); HDL Cholesterol 44 mg/dL (>40); LDL Cholesterol Calculated 141 mg/dL (<100); Triglycerides 184 mg/dL (<150)
[2024-03-28 11:49] LABS: Alanine Aminotransferase 18 U/L (0-31); Albumin Level 4.3 g/dL (3.5-5.0); Alkaline Phosphatase 93 U/L (39-117); Anion Gap 10 (12-20); Aspartate Amino Transferase 19 U/L (5-31); Bilirubin Total 0.4 mg/dL (0.0-1.0); Blood Urea Nitrogen 15 mg/dL (9-16); Calcium 9.5 mg/dL (8.4-10.2); Carbon Dioxide 28 mmol/L (22-29); Chloride 105 mmol/L (96-108); Estimated Glomerular Filt Rate > 60; Glucose Fasting 117 mg/dL (60-99); Potassium 3.9 mmol/L (3.3-5.1); Sodium 139 mmol/L (135-145); Total Protein 8.1 g/dL (6.5-8.0)
[2024-03-28 14:23] LABS: ~HepC Num1 0.99 S/CO (0.00-0.79)
[2024-03-28 15:11] LABS: ~HepC Num2 0.92; ~HepC Num3 0.89; ~Hepatitis C Antibody GRAYZONE (Nonreactive)
== END 2024-03-28 09:24 | disposition home or self-care (01) ==
LOC: HO.LAB 09:23
PROVIDERS: PCP Internal Medicine; Visit Provider Internal Medicine
DX: E11.9 Type 2 diabetes mellitus without complications (principal); E78.9 Disorder of lipoprotein metabolism, unspecified; R89.9 Unspecified abnormal finding in specimens from other organs, systems and tissues
CPT/HCPCS: 36415; 80053; 80061; 83036; 86803

== ENCOUNTER 2024-04-03 11:08 | Outpatient (AMB) | payer OTHER, SELFPAY ==
[2024-04-03 11:14] VITALS: BP 126/78; PULSE 96; TEMP 36.6; O2SAT 98; BMI 30.7
--- NOTE | 2024-04-03 11:14 | A.OFFPC_ITS ---
Vital Signs 04/03/24 11:14 Height 5 ft 8 in Weight 202 lb BMI 30.7 BP 126/78 Blood Pressure Location Lt brachial Position Sitting Pulse 96 Pulse Source Pulse Oximeter Temp 98 F Temp Source Oral Pulse Oximetry (%) 98 Oxygen Delivery Method Room Air Intake Visit Reasons: 4MoFollowUp Allergies No Known Allergies Allergy (Verified 04/03/24 11:27) Medication List - Last Reconciled 04/03/24 by Nathalie Estrada MD escitalopram oxalate 5 mg PO DAILY Tobacco use date assessed: 04/03/24 Dental Screening Dental Screen Date: 04/03/24 Did you have a dental visit in the last 12 months?: Yes Did you have a dental problem in the last 6 months where you did not have access to dental care?: No Was dental information given to patient?: Patient has dentist HPI 4MoFollowUp HPI Details History - The patient is a 38-year-old female pr esenting with anxiety and alopecia. She has been experiencing heightened anxiety for a few weeks, which is linked to stress at work and home, despite current treatment with escitalopram. - She reports hair loss over a few month s, possibly linked with stress, characterized by thinning and dryness, with itching of the scalp managed by frequent oil application. - Escitalopram was commenced in the [facility] er; patient attributes the ongoing anxiety and hair loss potentially to this medication, and a switch to fluoxetine was discussed. - No significant side effects from escit alopram reported other than potential hair loss. - She follows a regimen of protein shake s and vitamins for health, believes these may support hair health. - Recent lab results indicate an increas e in LDL from previous levels, coinciding with dietary changes toward greasier foods, and a stable hemoglobin A1c patient is diet-controlled diabetic - BMI is elevated patient is trying to l ose weight Problem List - Generalized Anxiety Disorder - Alopecia - Dyslipidemia - diabetes - obesity Patient Instructions - Begin taking fluoxetine as prescribed instead of escitalopram. - Continue to monitor anxiety levels and hair condition. Report any new symptoms. - continue diet-controlled for diabetes and weight loss - Continue current dietary changes aimed at reducing cholesterol, such as reducing greasy foods. - Consider taking supplements like bioti n for hair support if alopecia persists. - Maintain regular use of protein shakes and balanced nutrition to support overall health. - Schedule and attend the follow-up appo intment in three weeks via telehealth. Review of Systems. - General: No fever no chills - Neurological: No headaches no dizziness - Ear nose throat: No sore throat no hearing difficulty no ear pain - Cardiovascular: No syncope, no chest pain, no palpitations - Gastrointestinal: No nausea vomiting or diarrhea - Endocrine: No polyuria polydipsia no heat intolerance - Genitourinary: No dysuria , no blood in urine Physical Exam - General: No acute distress - HEENT: No acute findings , thinning o f hair noticed - Neck: Supple - Respiratory system: Able to talk in f ull sentences, no audible wheeze - cardiovascular: S1-S2 regular in rat e and rhythm - Gastrointestinal: No pain - Extremities: No new findings - COURTROOM DEPUTY: Alert awake oriented x3 motor se nsory intact - Skin: Normal turgor [facility] Medical History FH: colon cancer Obesity (BMI 30.0-34.9) Pain in right elbow Surgical History History of colonoscopy Family History Father Diabetes mellitus Mother Diabetes mellitus HTN (hypertension) Paternal Grandmother Colon cancer Paternal Grandfather Colon cancer Paternal Aunt Colon cancer Brother No problems noted. Brother No problems noted. Sister No problems noted. Sister No problems noted. Other Mental health disorder Substance use disorder Social History Housing: Condominium Alcohol intake: current Alcohol intake frequency: holidays/special occasions only Patient Tobacco Use Status: Never used Tobacco e-Cigarette/Vaping Use: Never Used Second Hand Smoke Exposure: No Current occupational status: employed Cognitive needs: No Hearing needs: No Vision needs: Yes Female Reproductive History Menstrual Age of Menarche: 13 Questionnaire PHQ-9 Over the last 2 weeks, how often have you been bothered by any of the following problems? 1. Little interest or pleasure in doing things: not at all 2. Feeling down, depressed, or hopeless: not at all 3. Trouble falling or staying asleep, or sleeping too much: several days 4. Feeling tired or having little energy: several days 5. Poor appetite or overeating: not at all 6. Feeling bad about yourself - or that you are a failure or have let yourself or your family down: not at all 7. Trouble concentrating on things, such as reading the newspaper or watching television: several days 8. Moving or speaking so slowly that other people could have noticed. Or the opposite - being so fidgety or restless that you have been moving around a lot more than usual: not at all 9. Thoughts that you would be better off or of hurting yourself in some way: not at all Total score: 3 Depression Screening Interpretation: Negative Depression Screening Done: Yes 07982 - PHQ-9 Billing: Yes Source: Developed by Drs. Anthony Acharya, Ciera Reynolds, Candelario Carlos and colleagues, with an educational evelyn from [email or web address]. Thrive Questionnaire Date Thrive assessed: 04/03/24 I am a: Patient What is your living situation today?: I have a steady place to live Within the past 12 months, did the food you bought not last and you didn't have the money to get more?: Never true Within the past 12 months, did you worry whether your food would run out before you got money to buy more?: Never true Do you have trouble paying for medicines?: No Do you have trouble getting transportation to medical appointments?: No Do you have trouble paying your heating and electricity bill?: No Do you have trouble taking care of your child, family member or friend?: No Do you have trouble with day-to-day activities such as bathing, preparing meals, shopping, managing finances, etc.?: No Are you currently unemployed and looking for a job?: No Are you interested in more education?: No Please select the resources that you would like help with: None Currently or been in a relationship where the following occur: I choose not to answer THRIVE Score: 0 AUDIT C Alcohol Use Questionnaire (AUDIT-C) 1. How often do you have a drink containing alcohol?: 2-4 times a month 2. How many drinks containing alcohol do you have on a typical day when you are drinking?: 1 or 2 3. How often do you have six or more drinks on one occasion?: Never Total Score: 2 Score Reviewed/Action Taken: Yes SRIDHAR-7 AMB Questionnaire SRIDHAR-7 Date SRIDHAR - 7 assessed: 04/03/24 Feeling nervous, anxious, or on edge: 1 = Several days Not being able to stop or control worryin = Several days Worrying too much about different things: 1 = Several days Trouble relaxin = Several days Being so restless that it is hard to sit still: 1 = Several days Becoming easily annoyed or irritable: 1 = Several days Feeling afraid as if something awful might happen: 1 = Several days Total SRIDHAR-7 score (0-4 normal; 5-9 mild; 10-14 moderate; 15-21 severe): 7 Source: Developed by Drs. Anthony Acharya, Ciera Reynolds, Candelario Carlos and colleagues, with an educational evelyn from [email or web address]. SRIDHAR-7 Assessment Billing SRIDHAR-7 Assessment Tool: SRIDHAR-7 Assessment 70143 Physical exam (Primary Care) Vital Signs: Last Vital Signs Temp 98 F 04/03/24 11:14 Pulse 96 04/03/24 11:14 BP 126/78 04/03/24 11:14 Pulse Ox 98 04/03/24 11:14 Oxygen Delivery Method Room Air 04/03/24 11:14 BMI result Body Mass Index 30.7 Tobacco/Smoking Status: Tobacco use Status Tobacco use date assessed 04/03/24 04/03/24 11:27 Patient Tobacco Use Status Never used Tobacco 04/03/24 11:24 e-Cigarette/Vaping Use Never Used 04/03/24 11:24 PHQ-9: PHQ-9 Score PHQ-9: Total score 3 04/03/24 11:27 Depression Screening Interpretation: Negative Thrive Assessment: Date of Thrive Assessment Date Thrive assessed 04/03/24 04/03/24 11:27 Currently or been in a relationship where the following occur: I choose not to answer Coding Level of Care Code Est Pt Level 4 (69748) Diagnoses Diet-controlled diabetes mellitus E11.9 Alopecia L65.9 Lipid disorder E78.9 Class 1 obesity due to excess calories with serious comorbidity and body mass index (BMI) of 30.0 to 30.9 in adult E66.811; E66.09; Z68.30 Obesity classification: adult class 1 (BMI 30 - 34.9) Serious obesity comorbidity presence: with serious comorbidity Body mass index: BMI 30.0-30.9 Anxiety and depression F41.9; F32.A Additional Codes SRIDHAR-7 Assessment Billing - SRIDHAR-7 Assessment Tool: SRIDHAR-7 Assessment [id number] ([id number]) PHQ-9 - 76321 - PHQ-9 Billing: Yes ([id number]) Assessment & Plan Assessment & Plan (1) Diet-controlled diabetes mellitus: Code(s): E11.9 - Type 2 diabetes mellitus without complications Category: Medical (2) Alopecia: Code(s): L65.9 - Nonscarring hair loss, unspecified Category: Medical (3) Lipid disorder: Code(s): E78.9 - Disorder of lipoprotein metabolism, unspecified Category: Medical (4) Obesity due to excess calories: Code(s): E66.09 - Other obesity due to excess calories Category: Medical Qualifiers: Obesity classification: adult class 1 (BMI 30 - 34.9) Serious obesity comorbidity presence: with serious comorbidity Body mass index: BMI 30.0-30.9 Qualified Code(s): E66.811 - Obesity, class 1; E66.09 - Other obesity due to excess calories; Z68.30 - Body mass index [BMI] 30.0-30.9, adult (5) Anxiety and depression: Code(s): F41.9 - Anxiety disorder, unspecified; F32.A - Depression, unspecified Category: Medical Plan History - The patient is a 38-year-old female presenting with anxiety and alopecia. She has been experiencing heightened anxiety for a few weeks, which is linked to stress at work and home, despite current treatment with escitalopram. - She reports hair loss over a few months, possibly linked with stress, characterized by thinning and dryness, with itching of the scalp managed by frequent oil application. - Escitalopram was commenced in the summer; patient attributes the ongoing anxiety and hair loss potentially to this medication, and a switch to fluoxetine was discussed. - No significant side effects from escitalopram reported other than potential hair loss. - She follows a regimen of protein shakes and vitamins for health, believes these may support hair health. - Recent lab results indicate an increase in LDL from previous levels, coinciding with dietary changes toward greasier foods, and a stable hemoglobin A1c patient is diet-controlled diabetic - BMI is elevated patient is trying to lose weight Problem List - Generalized Anxiety Disorder - Alopecia - Dyslipidemia - diabetes - obesity Patient Instructions - Begin taking fluoxetine as prescribed instead of escitalopram. - Continue to monitor anxiety levels and hair condition. Report any new symptoms. - continue diet-controlled for diabetes and weight loss - Continue current dietary changes aimed at reducing cholesterol, such as redu cing greasy foods. - Consider taking supplements like biotin for hair support if alopecia persists. - Maintain regular use of protein shakes and balanced nutrition to support overall health. - Schedule and attend the follow-up appointment in three weeks via telehealth. Medications: New fluoxetine 10 mg PO DAILY 30 caps 0RF
== END 2024-04-03 11:45 | disposition home or self-care (01) ==
PROVIDERS: PCP Internal Medicine; Visit Provider Internal Medicine
DX: E11.9 Type 2 diabetes mellitus without complications (principal); L65.9 Nonscarring hair loss, unspecified; E78.9 Disorder of lipoprotein metabolism, unspecified; E66.811 Obesity, class 1; E66.09 Other obesity due to excess calories; Z68.30 Body mass index [BMI] 30.0-30.9, adult; F41.9 Anxiety disorder, unspecified; F32.A Depression, unspecified

== ENCOUNTER → 2024-04-03 11:08 | Outpatient (BNVA) | payer OTHER, SELFPAY | PROVIDERS: PCP Internal Medicine; Visit Provider Internal Medicine | DX: E11.9 Type 2 diabetes mellitus without complications (principal); L65.9 Nonscarring hair loss, unspecified; E78.9 Disorder of lipoprotein metabolism, unspecified; E66.811 Obesity, class 1; E66.09 Other obesity due to excess calories; Z68.30 Body mass index [BMI] 30.0-30.9, adult; F41.9 Anxiety disorder, unspecified; F32.A Depression, unspecified | CPT/HCPCS: 96127 ==

== ENCOUNTER 2024-04-30 08:00 | Outpatient (AMB) | payer OTHER, SELFPAY ==
--- NOTE | 2024-04-30 08:21 | A.OFFPC_ITS ---
Intake Visit Reasons: 3 weeks f/up-telehealth Allergies No Known Allergies Allergy (Verified 04/30/24 08:22) Medication List - Last Reconciled 04/30/24 by Nathalie Estrada MD bupropion HCl SR mg PO DAILY Tobacco use date assessed: 04/30/24 Dental Screening Dental Screen Date: 04/30/24 Did you have a dental visit in the last 12 months?: Yes Did you have a dental problem in the last 6 months where you did not have access to dental care?: No Was dental information given to patient?: Patient has dentist HPI 3 weeks f/up-telehealth HPI Details History - The patient is a 38-year-old female re cently diagnosed with ADHD thru Psych. The patient reports symptomatic improvement since starting on bupropion (Wellbutrin) 150 mg once daily. Follow-up appointments with Psychiatry are planned every ten weeks after the upcoming review in two weeks. - Additionally, the patient reported a m arked improvement in scalp xerosis, linked to changes in medication, with symptoms now mostly resolved. - The patient is managing Type 2 Diabete s Mellitus, with the most recent HbA1c recorded at 6.2% in March. She does note occasional dry mouth but denies frequent urination, associating the dryness with her medication. Problem List - Attention-Deficit/Hyperactivity Disord er (ADHD) - Type 2 Diabetes Mellitus - Xerosis of the Scalp Patient Instructions - Continue taking bupropion (Wellbutrin) 150 mg once daily as prescribed thru Psych - Follow up with the psychiatrist in two weeks and subsequently on a 10-week schedule. - Maintain diabetes management and lifes tyle modifications. Get labs done the day before the next diabetes appointment scheduled in July. - Monitor for symptoms of scalp dryness. Continue current regimen and consider extending the interval between treatments as symptoms allow. - Seek medical attention if experiencing persistent or worsening symptoms, including significant changes in urination or thirst. Review of Systems - General: No fever no chills - Neurological: No headaches no dizziness - Ear nose throat: No sore throat no hearing difficulty no ear pain - Cardiovascular: No syncope, no chest pain, no palpitations - Gastrointestinal: No nausea vomiting or diarrhea - Endocrine: No polyuria polydipsia no heat intolerance - Genitourinary: No dysuria , no blood in urine [facility] Medical History FH: colon cancer Obesity (BMI 30.0-34.9) Pain in right elbow Surgical History History of colonoscopy Family History Father Diabetes mellitus Mother Diabetes mellitus HTN (hypertension) Paternal Grandmother Colon cancer Paternal Grandfather Colon cancer Paternal Aunt Colon cancer Brother No problems noted. Brother No problems noted. Sister No problems noted. Sister No problems noted. Other Mental health disorder Substance use disorder Social History Housing: Condominium Alcohol intake: current Alcohol intake frequency: holidays/special occasions only Patient Tobacco Use Status: Never used Tobacco e-Cigarette/Vaping Use: Never Used Second Hand Smoke Exposure: No Current occupational status: employed Cognitive needs: No Hearing needs: No Vision needs: Yes Female Reproductive History Menstrual Age of Menarche: 13 Questionnaire Thrive Questionnaire Date Thrive assessed: 04/03/24 AUDIT C Alcohol Use Questionnaire (AUDIT-C) 1. How often do you have a drink containing alcohol?: 2-4 times a month 2. How many drinks containing alcohol do you have on a typical day when you are drinking?: 1 or 2 3. How often do you have six or more drinks on one occasion?: Never Total Score: 2 Score Reviewed/Action Taken: Yes SRIDHAR-7 AMB Questionnaire SRIDHAR-7 Date SRIDHAR - 7 assessed: 04/03/24 Source: Developed by Drs. Anthony Acharya, Ciera Reynolds, Candelario Carlos and colleagues, with an educational evelyn from [employer]. Physical exam (Primary Care) Tobacco/Smoking Status: Tobacco use Status Tobacco use date assessed 04/30/24 04/30/24 08:22 Patient Tobacco Use Status Never used Tobacco 04/30/24 08:22 e-Cigarette/Vaping Use Never Used 04/30/24 08:22 Thrive Assessment: Date of Thrive Assessment Date Thrive assessed 04/03/24 04/30/24 08:22 Telehealth Telehealth Telehealth Platform: [facility] Location of provider rendering services: practice address Location of patient: address on file Patient Identification confirmed using: Name, : Yes Telehealth method: video Patient verbally consented to treatment: Yes Patient verbally consented to billing insurance company: Yes Patient informed of any privacy concerns related to visit: Yes Minutes spent on Phone/Video with Pt.: 13 Coding Level of Care Code Tele Est Pt Level 3 (45171) Diagnoses Anxiety, generalized F41.1 Diet-controlled diabetes mellitus E11.9 ADHD F90.9 Assessment & Plan Assessment & Plan (1) Anxiety, generalized: Code(s): F41.1 - Generalized anxiety disorder Category: Medical (2) Diet-controlled diabetes mellitus: Code(s): E11.9 - Type 2 diabetes mellitus without complications Category: Medical (3) ADHD: Code(s): F90.9 - Attention-deficit hyperactivity disorder, unspecified type Category: Medical Plan History - The patient is a 38-year-old female recently diagnosed with ADHD thru Psych. The patient reports symptomatic improvement since starting on bupropion (Wellbutrin) 150 mg once daily. Follow-up appointments with Psychiatry are planned every ten weeks after the upcoming review in two weeks. - Additionally, the patient reported a marked improvement in scalp xerosis, linked to changes in medication, with symptoms now mostly resolved. - The patient is managing Type 2 Diabetes Mellitus, with the most recent HbA1c recorded at 6.2% in March. She does note occasional dry mouth but denies frequent urination, associating the dryness with her medication. Problem List - Attention-Deficit/Hyperactivity Disorder (ADHD) - Type 2 Diabetes Mellitus - Xerosis of the Scalp Patient Instructions - Continue taking bupropion (Wellbutrin) 150 mg once daily as prescribed thru Psych - Follow up with the psychiatrist in two weeks and subsequently on a 10-week schedule. - Maintain diabetes management and lifestyle modifications. Get labs done the day before the next diabetes appointment scheduled in July. - Monitor for symptoms of scalp dryness. Continue current regimen and consider extending the interval between treatments as symptoms allow. - Seek medical attention if experiencing persistent or worsening symptoms, including significant changes in urination or thirst. Orders: Orders Hemoglobin A1c Today E11.9 - Type 2 diabetes mellitus without complications, F41.1 - Generalized anxiety disorder Complete Blood Count Auto Diff Today E11.9 - Type 2 diabetes mellitus without complications, F41.1 - Generalized anxiety disorder Comprehensive Met. Panel Today E11.9 - Type 2 diabetes mellitus without complications, F41.1 - Generalized anxiety disorder LDL Cholesterol Direct Today E11.9 - Type 2 diabetes mellitus without complications, F41.1 - Generalized anxiety disorder
== END 2024-04-30 09:00 | disposition home or self-care (01) ==
LOC: HO.HMCC 08:00
PROVIDERS: PCP Internal Medicine; Visit Provider Internal Medicine
DX: E11.9 Type 2 diabetes mellitus without complications (principal); F41.1 Generalized anxiety disorder; F90.9 Attention-deficit hyperactivity disorder, unspecified type

== ENCOUNTER → 2024-04-30 08:00 | Outpatient (BNVA) | payer OTHER, SELFPAY | PROVIDERS: PCP Internal Medicine; Visit Provider Internal Medicine ==

== ENCOUNTER 2024-07-31 06:46 | Outpatient (REF) | payer OTHER, SELFPAY ==
[2024-07-31 06:59] LABS: MANUAL DIFF FLAG NO
[2024-07-31 07:42] LABS: Basophils Absolute Auto 0.1 X10*3/uL (0.0-0.2); Basophils Percent Auto 0.7 % (0-2); Eosinophils Absolute Auto 0.5 X10*3/uL (0.0-0.4); Eosinophils Percent Auto 6.1 % (0-4); Hematocrit 40.3 % (37.0-47.0); Hemoglobin 12.8 g/dl (12.0-16.0); Imm Gran Abs Auto 0.02 X10*3/uL (0.00-0.03); Imm Gran Pct Auto 0.3 % (0.0-0.4); Lymphocytes Absolute Auto 1.9 X10*3/uL (1.2-4.9); Lymphocytes Percent Auto 25.8 % (20-40); Mean Corpuscular HGB Conc 31.8 g/dl (31.0-35.0); Mean Corpuscular Hemoglobin 25.1 pg (27.0-33.0); Mean Corpuscular Volume 79.2 fL (80.0-98.0); Mean Platelet Volume 9.5 fL (9.4-12.3); Monocytes Absolute Auto 0.4 X10*3/uL (0.1-1.2); Monocytes Percent Auto 5.4 % (2-11); Neutrophils Absolute Auto 4.6 x10*3/uL (2.0-8.3); Neutrophils Percent Auto 61.7 % (45-73); Platelet Count 418 X10*3/uL (160-400); Red Blood Count 5.09 X10*6/uL (4.20-5.50); Red Cell Distribution Width 12.6 % (11.0-16.0); White Blood Count 7.4 X10*3/uL (4.8-10.8)
[2024-07-31 07:52] LABS: Estimated Average Glucose 146 mg/dL; Hemoglobin A1c % 6.7 % (<6.0); Total Hemoglobin (HGBA1C) 3405.1417 umol/L
[2024-07-31 08:24] LABS: Alanine Aminotransferase 45 U/L (0-31); Albumin Level 4.4 g/dL (3.5-5.0); Alkaline Phosphatase 106 U/L (39-117); Anion Gap 12 (12-20); Aspartate Amino Transferase 31 U/L (5-31); Bilirubin Total 0.4 mg/dL (0.0-1.0); Blood Urea Nitrogen 14 mg/dL (9-16); Calcium 8.8 mg/dL (8.4-10.2); Carbon Dioxide 25 mmol/L (22-29); Chloride 105 mmol/L (96-108); Estimated Glomerular Filt Rate 57; Glucose Random 163 mg/dL (60-115); Potassium 3.6 mmol/L (3.3-5.1); Sodium 138 mmol/L (135-145); Total Protein 7.6 g/dL (6.5-8.0)
[2024-07-31 08:56] LABS: Appearance Urine Clear; Color Urine Yellow; Glucose Urine UA Negative (Negative); Leukocyte Esterase Urine Small (1+) (Negative); Nitrite Urine Negative (Negative); UMIC TRIGGER UA YES; Urine Blood Negative (Negative); Urine Ketones Trace mg/dL (Negative); Urine Protein Negative (Neg-Trace)
[2024-07-31 09:09] LABS: Bacteria Urine Trace (None Seen); Hyaline Casts Urine 0-2 /LPF (0-2); RBC Urine 0-2 /HPF (0-2)
[2024-07-31 09:41] LABS: Creatinine Urine 231.49 mg/dL; Microalbum/Creatinine Ratio Ur 7.3 ug/mg cr (<30)
[2024-08-01 18:57] LABS: LDL Cholesterol Direct 108 mg/dL (<100)
== END 2024-07-31 06:47 | disposition home or self-care (01) ==
LOC: HO.LAB 06:46
PROVIDERS: Nurse Practitioner Family; PCP Internal Medicine; Visit Provider Internal Medicine
DX: F41.1 Generalized anxiety disorder (principal); E11.9 Type 2 diabetes mellitus without complications; R30.0 Dysuria; E78.9 Disorder of lipoprotein metabolism, unspecified
CPT/HCPCS: 36415; 80053; 81001; 82043; 82570; 83036; 83721; 85025; 87086

== ENCOUNTER 2024-08-04 15:30 | Outpatient (AMB) | payer OTHER, SELFPAY ==
[2024-08-04 15:33] VITALS: BP 144/92; PULSE 101; TEMP 36.8; O2SAT 92; BMI 31.6
--- NOTE | 2024-08-04 15:33 | MHC.PC.OV ---
Vital Signs 08/04/24 15:33 Height 5 ft 8 in Weight 208 lb BMI 31.6 BP 144/92 H Blood Pressure Location Rt brachial Position Sitting Pulse 101 H Pulse Source Pulse Oximeter Temp 98.2 F Temp Source Oral Pulse Oximetry (%) 92 Oxygen Delivery Method Room Air Intake Visit Reasons: phy Allergies No Known Allergies Allergy (Verified 08/04/24 15:33) Medication List - Last Reconciled 08/04/24 by Nathalie Estrada MD bupropion HCl SR mg PO DAILY hydroxyzine HCl 10 mg PO BEDTIME Tobacco use date assessed: 08/04/24 Dental Screening Dental Screen Date: 08/04/24 Did you have a dental visit in the last 12 months?: No Did you have a dental problem in the last 6 months where you did not have access to dental care?: No Was dental information given to patient?: No (Patient wants referral) HPI phy HPI Details Physical exam appointment - The patient is a 38-year-old female presenting with concerns regarding Type 2 Diabetes Mellitus, ADHD, and gastrointestinal issues. - Her recent Hemoglobin A1c is 6.7%, indicating a worsening of her diabetic status. She associates dietary habits, particularly ice cream consumption, with blood sugar elevation. - The patient describes experiencing increased stress and anxiety in the past few weeks due to workplace challenges, which she believes has contributed to elevated blood pressure, recorded today at 144/90 mmHg. - She reports mildly elevated liver enzyme levels, noted in recent lab results, and speculates about their association with dietary habits. - The patient identifies ADHD and depression as part of her current mental health concerns, reporting struggles in recent weeks leading to an increased dose of Bupropion by her psychiatrist. - She experiences gastrointestinal discomfort with notable gas production and burping, which seem to alleviate the discomfort, suggesting a dietary link. - The patient reports internal hemorrhoids, with occasional flare-ups associated with constipation, managed by [id number] remedies in the past. Her symptoms include bleeding when straining during bowel movements. - She describes symptoms such as heart racing during anxiety episodes, which are managed by reducing caffeine intake and exacerbated by stress. 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 - She acknowledges dietary challenges, particularly the consumption of ice cream, related to her diabetic condition. Health Maintenance - Routine CBC showing normal hemoglobin levels. - Comprehensive metabolic panel with normal electrolytes and kidney function. - Liver function panel showing mildly elevated enzyme. - Lipid panel: Previously elevated LDL now improved to 108 mg/dL from 141 mg/dL. - Recent eye examination in March, new prescription glasses obtained. - Upcoming OBGYN visit scheduled for breast and routine exams. - Last dental check-up over two years ago, plans to schedule visit. [place] [facility] - In regular contact with a therapist and psychiatrist for ongoing mental health management. Medications - Bupropion, for depression and ADHD. - Hydroxyzine, as mentioned. 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 Diagnostic results - Labs: Hemoglobin A1c at 6.7%. - Lipid panel: LDL reduced to 108 mg/dL. - Liver function tests denoting a slight elevation in a particular enzyme. - CBC with normal hemoglobin levels. Patient Instructions - Monitor blood sugar levels at home and aim to reduce intake of high-sugar foods such as ice cream. - Manage job-related stress through coping strategies, including continuing mental health support.. - Schedule an appointment with the dentist soon. - Use cortisone suppositories for hemorrhoid flare-ups only as needed. Follow-up 3 months labs are needed before visit Review of Systems - General: No fever no chills - Neurological: No headaches no dizziness - Ear nose throat: No sore throat no hearing difficulty no ear pain - Cardiovascular: No syncope, no chest pain, no palpitations - Gastrointestinal: No nausea vomiting or diarrhea - Endocrine: No polyuria polydipsia no heat intolerance - Genitourinary: No dysuria - Skin: No new complaints Physical Exam General: Cooperative, healthy appearing, comfortable, no acute distress Orientation: Patient oriented x3 Limitations: None Head: Normal to inspection Ears: Within normal limit visually Nose: Normal external nose present Face and sinus: Normal facial exam Eyes: Appearance normal, extraocular movement intact pupils reactive, last checked in March Neck: Normal visual inspection and supple Respiratory: Normal respiratory effort and able to speak in complete sentences. Clear to auscultation, no stridor Cardiovascular: S1 and S2 RRR, blood pressure 144/90 GI: Normal to inspection. Soft to palpation and nontender, patient reports discomfort likely due to diet and gas Skin: Turgor normal, no acute findings, patient reports monitoring freckles on face Neuro: Patient oriented x3, motor sensory intact, balance intact, tandem pass Extremities: Normal to inspection, full range of motion [facility] Medical History FH: colon cancer Obesity (BMI 30.0-34.9) Pain in right elbow Surgical History History of colonoscopy Family History Father Diabetes mellitus Mother Diabetes mellitus HTN (hypertension) Paternal Grandmother Colon cancer Paternal Grandfather Colon cancer Paternal Aunt Colon cancer Brother No problems noted. Brother No problems noted. Sister No problems noted. Sister No problems noted. Other Mental health disorder Substance use disorder Social History Housing: Condominium Alcohol intake: current Alcohol intake frequency: holidays/special occasions only Patient Tobacco Use Status: Never used Tobacco e-Cigarette/Vaping Use: Never Used Second Hand Smoke Exposure: No Current occupational status: employed Cognitive needs: No Hearing needs: No Vision needs: Yes Female Reproductive History Menstrual Age of Menarche: 13 Questionnaire PHQ-9 Over the last 2 weeks, how often have you been bothered by any of the following problems? 1. Little interest or pleasure in doing things: several days 2. Feeling down, depressed, or hopeless: several days Source: Developed by Drs. Anthony Acharya, Ciera Reynolds, Candelario Carlos and colleagues, with an educational evelyn from [employer]. Thrive Questionnaire Date Thrive assessed: 04/03/24 I am a: Patient What is your living situation today?: I have a steady place to live Within the past 12 months, did the food you bought not last and you didn't have the money to get more?: Never true Within the past 12 months, did you worry whether your food would run out before you got money to buy more?: Never true Do you have trouble paying for medicines?: No Do you have trouble getting transportation to medical appointments?: No Do you have trouble paying your heating and electricity bill?: No Do you have trouble taking care of your child, family member or friend?: No Do you have trouble with day-to-day activities such as bathing, preparing meals, shopping, managing finances, etc.?: No Are you currently unemployed and looking for a job?: No Are you interested in more education?: No Please select the resources that you would like help with: None Currently or been in a relationship where the following occur: I choose not to answer THRIVE Score: 0 SRIDHAR-7 AMB Questionnaire SRIDHAR-7 Date SRIDHAR - 7 assessed: 04/03/24 Source: Developed by Drs. Anthony Acharya, Ciera Reynolds, Candelario Carlos and colleagues, with an educational evelyn from [employer]. Physical exam (Primary Care) Vital Signs: Last Vital Signs Temp 98.2 F 08/04/24 15:33 Pulse 101 H 08/04/24 15:33 BP 144/92 H 08/04/24 15:33 Pulse Ox 92 08/04/24 15:33 Oxygen Delivery Method Room Air 08/04/24 15:33 BMI result Body Mass Index 31.6 Tobacco/Smoking Status: Tobacco use Status Tobacco use date assessed 08/04/24 08/04/24 15:35 Patient Tobacco Use Status Never used Tobacco 08/04/24 15:35 e-Cigarette/Vaping Use Never Used 08/04/24 15:35 Thrive Assessment: Date of Thrive Assessment Date Thrive assessed 04/03/24 08/04/24 15:35 Currently or been in a relationship where the following occur: I choose not to answer Coding Level of Care Code Est Pt Level 3 (42949) Est Pt Prev Care 18-39y(98619) Diagnoses Encounter for general adult medical examination with abnormal findings Z00.01 Diet-controlled diabetes mellitus E11.9 Class 1 obesity due to excess calories with serious comorbidity and body mass index (BMI) of 30.0 to 30.9 in adult E66.811; E66.09; Z68.30 Body mass index: BMI 30.0-30.9 Obesity classification: adult class 1 (BMI 30 - 34.9) Serious obesity comorbidity presence: with serious comorbidity Attention deficit hyperactivity disorder (ADHD), unspecified ADHD type F90.9 Attention deficit-hyperactivity disorder type: unspecified Stress at work Z56.6 Elevated blood pressure reading R03.0 Assessment & Plan Assessment & Plan (1) Encounter for general adult medical examination with abnormal findings: Code(s): Z00.01 - Encounter for general adult medical examination with abnormal findings Category: Medical (2) Diet-controlled diabetes mellitus: Code(s): E11.9 - Type 2 diabetes mellitus without complications Category: Medical (3) Obesity due to excess calories: Code(s): E66.09 - Other obesity due to excess calories Category: Medical Qualifiers: Body mass index: BMI 30.0-30.9 Obesity classification: adult class 1 (BMI 30 - 34.9) Serious obesity comorbidity presence: with serious comorbidity Qualified Code(s): E66.811 - Obesity, class 1; E66.09 - Other obesity due to excess calories; Z68.30 - Body mass index [BMI] 30.0-30.9, adult (4) ADHD: Code(s): F90.9 - Attention-deficit hyperactivity disorder, unspecified type Category: Medical Qualifiers: Attention deficit-hyperactivity disorder type: unspecified Qualified Code(s): F90.9 - Attention-deficit hyperactivity disorder, unspecified type (5) Stress at work: Code(s): Z56.6 - Other physical and mental strain related to work Category: Social Hx (6) Elevated blood pressure reading: Code(s): R03.0 - Elevated blood-pressure reading, without diagnosis of hypertension Category: Medical Plan Physical exam appointment - The patient is a 38-year-old female presenting with concerns regarding Type 2 Diabetes Mellitus, ADHD, and gastrointestinal issues. - Her recent Hemoglobin A1c is 6.7%, indicating a worsening of her diabetic status. She associates dietary habits, particularly ice cream consumption, with blood sugar elevation. - The patient describes experiencing increased stress and anxiety in the past few weeks due to workplace challenges, which she believes has contributed to elevated blood pressure, recorded today at 144/90 mmHg. - She reports mildly elevated liver enzyme levels, noted in recent lab results, and speculates about their association with dietary habits. - The patient identifies ADHD and depression as part of her current mental health concerns, reporting struggles in recent weeks leading to an increased dose of Bupropion by her psychiatrist. - She experiences gastrointestinal discomfort with notable gas production and burping, which seem to alleviate the discomfort, suggesting a dietary link. - The patient reports internal hemorrhoids, with occasional flare-ups associated with constipation, managed by [id number] remedies in the past. Her symptoms include bleeding when straining during bowel movements. - She describes symptoms such as heart racing during anxiety episodes, which are managed by reducing caffeine intake and exacerbated by stress. 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 - She acknowledges dietary challenges, particularly the consumption of ice cream, related to her diabetic condition. Health Maintenance - Routine CBC showing normal hemoglobin levels. - Comprehensive metabolic panel with normal electrolytes and kidney function. - Liver function panel showing mildly elevated enzyme. - Lipid panel: Previously elevated LDL now improved to 108 mg/dL from 141 mg/dL. - Recent eye examination in March, new prescription glasses obtained. - Upcoming OBGYN visit scheduled for breast and routine exams. - Last dental check-up over two years ago, plans to schedule visit. [place] [facility] - In regular contact with a therapist and psychiatrist for ongoing mental health management. Medications - Bupropion, for depression and ADHD. - Hydroxyzine, as mentioned. 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 Diagnostic results - Labs: Hemoglobin A1c at 6.7%. - Lipid panel: LDL reduced to 108 mg/dL. - Liver function tests denoting a slight elevation in a particular enzyme. - CBC with normal hemoglobin levels. Patient Instructions - Monitor blood sugar levels at home and aim to reduce intake of high-sugar foods such as ice cream. - Manage job-related stress through coping strategies, including continuing mental health support.. - Schedule an appointment with the dentist soon. - Use cortisone suppositories for hemorrhoid flare-ups only as needed. Follow-up 3 months labs are needed before visit Orders: Orders Hemoglobin A1c Today E11.9 - Type 2 diabetes mellitus without complications, E66.09 - Other obesity due to excess calories, E66.811 - Obesity, class 1, F90.9 - Attention-deficit hyperactivity disorder, unspecified type, Z00.01 - Encounter for general adult medical examination with abnormal findings, Z68.30 - Body mass index [BMI] 30.0-30.9, adult Comprehensive Met. Panel Today E11.9 - Type 2 diabetes mellitus without complications, E66.09 - Other obesity due to excess calories, E66.811 - Obesity, class 1, F90.9 - Attention-deficit hyperactivity disorder, unspecified type, Z00.01 - Encounter for general adult medical examination with abnormal findings, Z68.30 - Body mass index [BMI] 30.0-30.9, adult Medications: New hydrocortisone acetate 25 mg MO BID 12 ea 2RF 6 days K64.4 - Residual hemorrhoidal skin tags
== END 2024-08-04 15:56 | disposition home or self-care (01) ==
LOC: HO.HMCC 15:31
PROVIDERS: PCP Internal Medicine; Visit Provider Internal Medicine
DX: Z00.01 Encounter for general adult medical examination with abnormal findings (principal); E11.9 Type 2 diabetes mellitus without complications; E66.811 Obesity, class 1; Z68.30 Body mass index [BMI] 30.0-30.9, adult; F90.9 Attention-deficit hyperactivity disorder, unspecified type; Z56.6 Other physical and mental strain related to work; R03.0 Elevated blood-pressure reading, without diagnosis of hypertension

== ENCOUNTER → 2024-08-04 15:30 | Outpatient (BNVA) | payer OTHER, SELFPAY | PROVIDERS: PCP Internal Medicine; Visit Provider Internal Medicine | DX: Z13.89 Encounter for screening for other disorder (principal) ==

== ENCOUNTER 2024-08-05 07:55 | Outpatient (AMB) | payer OTHER, SELFPAY ==
--- NOTE | 2024-08-05 08:01 | A.OFFVIS_ITS ---
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 Off OCP's, not planning a future . Regular monthly menses. Currently is not sexually active. She denies vaginal itching or irritation. STI screening offered; she declines. She tries to eat healthy and stays active with exercise. Denies family history of breast or ovarian. FH of colon cancer. Last pap smear 2020, negative. [facility] Medical History FH: colon cancer Obesity (BMI 30.0-34.9) Pain in right elbow Surgical History History of colonoscopy Family History Father Diabetes mellitus Mother Diabetes mellitus HTN (hypertension) Paternal Grandmother Colon cancer Paternal Grandfather Colon cancer Paternal Aunt Colon cancer Brother No problems noted. Brother No problems noted. Sister No problems noted. Sister No problems noted. Other Mental health disorder Substance use disorder Social History Housing: Condominium Alcohol intake: current Alcohol intake frequency: holidays/special occasions only Patient Tobacco Use Status: Never used Tobacco e-Cigarette/Vaping Use: Never Used Second Hand Smoke Exposure: No Current occupational status: employed Cognitive needs: No Hearing needs: No Vision needs: Yes Female Reproductive History Menstrual Age of Menarche: 13 Date of last menstrual period: 07/26/24 control method: none Total pregnancies: 0 Date of last pap smear: 04/19/20 (neg pap and hpv) Review of Systems Const All systems reviewed & are unremarkable except as noted in HPI and below Reports as per HPI Eyes Reports no additional complaints ENT Reports no additional complaints Card Reports no additional complaints Resp Reports no additional complaints GI Reports as per HPI and Reports no additional complaints Reports as per HPI Musc Reports no additional complaints Skin/Breast Reports as per HPI Neuro Reports no additional complaints Psych Reports no additional complaints Endo Reports no additional complaints Serafin/Lymph Reports no additional complaints Aller/Immun Reports no additional complaints Physical Exam Vital Signs: Last Vital Signs BP 124/86 08/05/24 08:02 BMI result Body Mass Index 31.2 Const General: cooperative, healthy appearing, no acute distress, well developed and alert Orientation/consciousness: patient oriented x3 HEENT Head: Yes normal to inspection Eyes General: appearance normal, both eyes and all related structures Neck Neck: Yes normal visual inspection Thyroid: Thyroid normal Chest Chest palpation & inspection: normal inspection of the chest and other (no puckering, dimpling, peau de orange, retraction, discharge, masses) Breast/axilla inspection: normal inspection of the breasts Breast/axilla palpation: normal palpation of the breasts Resp Effort & Inspection: normal respiratory effort GI Inspection: Yes normal to inspection Palpation (GI): Soft to palpation Rectal Exam - Female: deferred General: Yes bladder normal to palpation External Female Exam: normal external appearance and normal appearance of the urethra Speculum Exam - Vagina: normal appearance of the vagina, normal palpation and normal vaginal discharge Speculum Exam - Cervix: normal appearance of the cervix and normal palpation Bimanual exam- vagina & uterus: normal bimanual exam, normal palpation, uterine size normal, bladder normal to palpation, normal palpation and non-tender Bimanual Exam- Adnexa, other: no masses Skin General skin exam: no rashes or lesions noted Rashes: no rashes Neuro General: patient oriented x3 Cognition (Neuro): normal cognition Extrem General: Yes normal to inspection Psych Attitude: cooperative Thought process: Normal thought process present Assessment & Plan Assessment & Plan (1) Encounter for annual routine gynecological examination: Code(s): Z01.419 - Encounter for gynecological examination (general) (routine) without abnormal findings Category: Medical Plan Discussed: Current recommendations for pap smears per ASCCP guidelines. Breast awareness and periodic breast exams. Maintain a healthy lifestyle including a well balanced diet and routine exercise. Use condoms for STI and prevention. Patient verbalizes understanding and agrees to the plan of care. She was given opportunity to ask questions and all questions were answered to the best of my ability. RTO in one year for annual panel laminator examination. This note is constructed using voice recognition software. While every effort has been made to ensure accuracy, relocation counselor errors may have been included. Coding Level of Care Code Est Pt Prev Care 18-39y(03288) Diagnoses Encounter for annual routine gynecological examination Z01.419
[2024-08-05 08:02] VITALS: BP 124/86; BMI 31.2
== END 2024-08-05 08:41 | disposition home or self-care (01) ==
LOC: HO.HWS 07:55
PROVIDERS: PCP Internal Medicine; Visit Provider Advanced Practice Midwife
DX: Z01.419 Encounter for gynecological examination (general) (routine) without abnormal findings (principal)
CPT/HCPCS: 99395; 99459

== ENCOUNTER → 2024-08-05 07:55 | Outpatient (BNVA) | payer OTHER, SELFPAY | PROVIDERS: PCP Internal Medicine; Visit Provider Advanced Practice Midwife ==

== ENCOUNTER 2024-11-07 10:45 | Outpatient (REF) | payer OTHER, SELFPAY ==
[2024-11-07 14:01] LABS: Hemoglobin A1C 160.0067 umol/L; Total Hemoglobin (HGBA1C) 3305.3956 umol/L
[2024-11-07 14:06] LABS: Alanine Aminotransferase 24 U/L (0-31); Albumin Level 4.6 g/dL (3.5-5.0); Alkaline Phosphatase 110 U/L (39-117); Anion Gap 12 (12-20); Aspartate Amino Transferase 24 U/L (5-31); Blood Urea Nitrogen 10 mg/dL (9-16); Calcium 9.5 mg/dL (8.4-10.2); Carbon Dioxide 25 mmol/L (22-29); Chloride 106 mmol/L (96-108); Estimated Glomerular Filt Rate 55; Potassium 3.7 mmol/L (3.3-5.1); Sodium 139 mmol/L (135-145); Total Protein 7.6 g/dL (6.5-8.0)
[2024-11-07 14:22] LABS: Microalbum/Creatinine Ratio Ur 34.9 ug/mg cr (<30)
== END 2024-11-07 10:46 | disposition home or self-care (01) ==
LOC: HO.HMGCLDS 10:45
PROVIDERS: PCP Internal Medicine; Visit Provider Internal Medicine
DX: Z00.01 Encounter for general adult medical examination with abnormal findings (principal); E11.9 Type 2 diabetes mellitus without complications; E66.811 Obesity, class 1; F90.9 Attention-deficit hyperactivity disorder, unspecified type; Z68.30 Body mass index [BMI] 30.0-30.9, adult
CPT/HCPCS: 36415; 80053; 82043; 82570; 83036

== ENCOUNTER 2024-11-10 09:32 | Outpatient (AMB) | payer OTHER, SELFPAY ==
--- NOTE | 2024-11-10 09:35 | MHC.PC.OV ---
Vital Signs 11/10/24 09:37 Height 5 ft 8 in Weight 190 lb BMI 28.9 BP 122/78 Blood Pressure Location Lt brachial Position Sitting Pulse 96 Pulse Source Pulse Oximeter Pulse Oximetry (%) 98 Intake Visit Reasons: 3m follow up RESCHDULE from 11/06 Allergies No Known Allergies Allergy (Verified 11/10/24 12:25) Medication List - Last Reconciled 11/10/24 by Nathalie Estrada MD bupropion HCl SR mg PO DAILY hydrocortisone acetate 25 mg AL BID 6 days hydroxyzine HCl 10 mg PO BEDTIME Tobacco use date assessed: 08/04/24 Dental Screening Dental Screen Date: 08/04/24 HPI 3m follow up RESCHDULE from 11/06 HPI Details History of Present Illness The patient is a 39-year-old female presenting with concerns regarding compromised kidney function following a regular follow-up appointment. Compromised Kidney Function: - The patient reported that kidney function had been declining as noted through repeated laboratory tests. - Glomerular filtration rate (GFR) values were mentioned as follows: greater than 60 (March), 57 (July), and 55 (most recent). - Patient is unsure of the cause for the decline; no excessive intake of ibuprofen reported. - Family history is significant for kidney compromise - Mother had been on dialysis and had a history of long-standing diabetes. Diabetes: - Hemoglobin A1c was noted to be 6.6, indicating controlled blood glucose levels. - No current medications for diabetes were mentioned as being taken by the patient. - The patient does not report any longstanding or severe issues with diabetes management. Medical History: - Chronic Kidney Disease, stage possibly indicated by GFR values - Type 2 Diabetes Mellitus - Psychiatric care under the supervision of a clinician (Dr. Boothe) Medications: - Bupropion, dose not specified, for psychiatric management - Hydroxyzine, dose not specified, for psychiatric management Problem List - Compromised Kidney Function - Type 2 Diabetes Mellitus - Psychiatric Disorder under treatment Patient Instructions - Continue prescribed medication, including Wellbutrin. - Avoid using ibuprofen, Advil, and Motrin; can use Tylenol if needed for pain. - Seek a consultation with a biodiesel plant operations engineer as referred. - Follow up with me in 4 months for diabetes. Review of Systems - General: No fever no chills - Neurological: No headaches no dizziness - Ear nose throat: No sore throat no hearing difficulty no ear pain - Cardiovascular: No syncope, no chest pain, no palpitations - Gastrointestinal: No nausea vomiting or diarrhea - Endocrine: No polyuria polydipsia no heat intolerance - Genitourinary: No dysuria , no blood in urine Physical Exam - General: No acute distress - HEENT: No acute findings - Neck: Supple - Respiratory system: Able to talk in full sentences, no audible wheeze - Cardiovascular: S1-S2 regular in rate and rhythm - Gastrointestinal: No pain - Extremities: No new findings - SWEAT BAND SEWER: Alert awake oriented x3 motor intact - Skin: Normal turgor Patient was informed and verbally consented to the use of an ambient scribe for clinic note documentation during this visit. [facility] Medical History FH: colon cancer Obesity (BMI 30.0-34.9) Pain in right elbow Surgical History History of colonoscopy Family History Father Diabetes mellitus Mother Diabetes mellitus HTN (hypertension) Paternal Grandmother Colon cancer Paternal Grandfather Colon cancer Paternal Aunt Colon cancer Brother No problems noted. Brother No problems noted. Sister No problems noted. Sister No problems noted. Other Mental health disorder Substance use disorder Social History Housing: Condominium Alcohol intake: current Alcohol intake frequency: holidays/special occasions only Patient Tobacco Use Status: Never used Tobacco e-Cigarette/Vaping Use: Never Used Second Hand Smoke Exposure: No Current occupational status: employed Cognitive needs: No Hearing needs: No Vision needs: Yes Female Reproductive History Menstrual Age of Menarche: 13 Questionnaire PHQ-9 Over the last 2 weeks, how often have you been bothered by any of the following problems? 1. Little interest or pleasure in doing things: not at all 2. Feeling down, depressed, or hopeless: not at all 3. Trouble falling or staying asleep, or sleeping too much: several days 4. Feeling tired or having little energy: several days 5. Poor appetite or overeating: not at all 6. Feeling bad about yourself - or that you are a failure or have let yourself or your family down: not at all 7. Trouble concentrating on things, such as reading the newspaper or watching television: several days 8. Moving or speaking so slowly that other people could have noticed. Or the opposite - being so fidgety or restless that you have been moving around a lot more than usual: not at all 9. Thoughts that you would be better off or of hurting yourself in some way: not at all Total score: 3 Depression Screening Interpretation: Negative Depression Screening Done: Yes 80206 - PHQ-9 Billing: Yes Source: Developed by Drs. Anthony Acharya, Ciera Reynolds, Candelario Carlos and colleagues, with an educational evelyn from [employer]. Thrive Questionnaire Date Thrive assessed: 04/03/24 I am a: Patient What is your living situation today?: I have a steady place to live Within the past 12 months, did the food you bought not last and you didn't have the money to get more?: Never true Within the past 12 months, did you worry whether your food would run out before you got money to buy more?: Never true Do you have trouble paying for medicines?: No Do you have trouble getting transportation to medical appointments?: No Do you have trouble paying your heating and electricity bill?: No Do you have trouble taking care of your child, family member or friend?: No Do you have trouble with day-to-day activities such as bathing, preparing meals, shopping, managing finances, etc.?: No Are you currently unemployed and looking for a job?: No Are you interested in more education?: No Please select the resources that you would like help with: None Currently or been in a relationship where the following occur: I choose not to answer THRIVE Score: 0 AUDIT C Alcohol Use Questionnaire (AUDIT-C) 1. How often do you have a drink containing alcohol?: 2-4 times a month 2. How many drinks containing alcohol do you have on a typical day when you are drinking?: 1 or 2 3. How often do you have six or more drinks on one occasion?: Never Total Score: 2 SRIDHAR-7 AMB Questionnaire SRIDHAR-7 Date SRIDHAR - 7 assessed: 04/03/24 Feeling nervous, anxious, or on edge: 1 = Several days Not being able to stop or control worryin = Several days Worrying too much about different things: 1 = Several days Trouble relaxin = Several days Being so restless that it is hard to sit still: 1 = Several days Becoming easily annoyed or irritable: 1 = Several days Feeling afraid as if something awful might happen: 1 = Several days Total SRIDHAR-7 score (0-4 normal; 5-9 mild; 10-14 moderate; 15-21 severe): 7 Source: Developed by Drs. Anthony Acharya, Ciera Reynolds, Candelario Carlos and colleagues, with an educational evelyn from [employer]. SRIDHAR-7 Assessment Billing SRIDHAR-7 Assessment Tool: SRIDHAR-7 Assessment 38259 Physical exam (Primary Care) Vital Signs: Last Vital Signs Pulse 96 11/10/24 09:37 BP 122/78 11/10/24 09:37 Pulse Ox 98 11/10/24 09:37 BMI result Body Mass Index 28.9 Tobacco/Smoking Status: Tobacco use Status Tobacco use date assessed 08/04/24 11/10/24 09:35 Patient Tobacco Use Status Never used Tobacco 11/10/24 09:35 e-Cigarette/Vaping Use Never Used 11/10/24 09:35 PHQ-9: PHQ-9 Score PHQ-9: Total score 3 11/10/24 10:06 Depression Screening Interpretation: Negative Thrive Assessment: Date of Thrive Assessment Date Thrive assessed 04/03/24 11/10/24 09:35 Currently or been in a relationship where the following occur: I choose not to answer Coding Level of Care Code Est Pt Level 4 (99024) Diagnoses Decreased GFR R94.4 Diet-controlled diabetes mellitus E11.9 Attention deficit hyperactivity disorder (ADHD), unspecified ADHD type F90.9 Attention deficit-hyperactivity disorder type: unspecified Additional Codes PHQ-9 - 04560 - PHQ-9 Billing: Yes ([id number]) SRIDHAR-7 Assessment Billing - SRIDHAR-7 Assessment Tool: SRIDHAR-7 Assessment 21149 ([id number]) Time Spent (min) 30 Comment Reviewing chart/labs/vdvt-xs-gyms/coordination of care Assessment & Plan Assessment & Plan (1) Decreased GFR: Code(s): R94.4 - Abnormal results of kidney function studies Category: Medical (2) Diet-controlled diabetes mellitus: Code(s): E11.9 - Type 2 diabetes mellitus without complications Category: Medical (3) ADHD: Code(s): F90.9 - Attention-deficit hyperactivity disorder, unspecified type Category: Medical Qualifiers: Attention deficit-hyperactivity disorder type: unspecified Qualified Code(s): F90.9 - Attention-deficit hyperactivity disorder, unspecified type Plan History of Present Illness The patient is a 39-year-old female presenting with concerns regarding compromised kidney function following a regular follow-up appointment. Compromised Kidney Function: - The patient reported that kidney function had been declining as noted through repeated laboratory tests. - Glomerular filtration rate (GFR) values were mentioned as follows: greater than 60 (March), 57 (July), and 55 (most recent). - Patient is unsure of the cause for the decline; no excessive intake of ibuprofen reported. - Family history is significant for kidney compromise - Mother had been on dialysis and had a history of long-standing diabetes. Diabetes: - Hemoglobin A1c was noted to be 6.6, indicating controlled blood glucose levels. - No current medications for diabetes were mentioned as being taken by the patient. - The patient does not report any longstanding or severe issues with diabetes management. Medical History: - Chronic Kidney Disease, stage possibly indicated by GFR values - Type 2 Diabetes Mellitus - Psychiatric care under the supervision of a clinician (Dr. Boothe) Medications: - Bupropion, dose not specified, for psychiatric management - Hydroxyzine, dose not specified, for psychiatric management Problem List - Compromised Kidney Function - Type 2 Diabetes Mellitus - Psychiatric Disorder under treatment Patient Instructions - Continue prescribed medication, including Wellbutrin. - Avoid using ibuprofen, Advil, and Motrin; can use Tylenol if needed for pain. - Seek a consultation with a biodiesel plant operations engineer as referred. - Follow up with me in 4 months for diabetes. Orders: Referrals Nephrology Referral R94.4 - Abnormal results of kidney function studies
[2024-11-10 09:37] VITALS: BP 122/78; PULSE 96; O2SAT 98; BMI 28.9
== END 2024-11-10 10:08 | disposition home or self-care (01) ==
LOC: HO.HMCC 09:33
PROVIDERS: PCP Internal Medicine; Visit Provider Internal Medicine
DX: R94.4 Abnormal results of kidney function studies (principal); E11.9 Type 2 diabetes mellitus without complications; F90.9 Attention-deficit hyperactivity disorder, unspecified type

== ENCOUNTER 2024-11-10 09:32 | Outpatient (REF) | payer OTHER, SELFPAY ==
[2024-11-11 02:49] LABS: Bacterial Vaginosis PCR NEGATIVE (Negative); Candida Group PCR DETECTED (Not Detect); Candida glab krusei PCR NOT DETECTED (Not Detect); Trichomonas vaginalis PCR NOT DETECTED (Not Detect)
[2024-11-11 03:20] LABS: CT PCR NOT DETECTED (Not Detect.); NG PCR NOT DETECTED (Not Detect.)
== END 2024-11-10 09:33 | disposition home or self-care (01) ==
LOC: HO.LNP 09:32
PROVIDERS: Obstetrics & Gynecology; PCP Internal Medicine; Visit Provider Internal Medicine
DX: N76.0 Acute vaginitis (principal); R94.4 Abnormal results of kidney function studies; E11.9 Type 2 diabetes mellitus without complications; F90.9 Attention-deficit hyperactivity disorder, unspecified type; Z79.899 Other long term (current) drug therapy
CPT/HCPCS: 81515; 87491; 87591; 96127

== ENCOUNTER 2024-11-10 11:56 | Outpatient (AMB) | payer OTHER, SELFPAY ==
--- NOTE | 2024-11-10 12:21 | MHC.OFFVIS ---
Vital Signs 11/10/24 12:24 Height 5 ft 8 in Weight 190 lb BMI 28.9 Intake Visit Reasons: vaginal itching Analyst Food And Beverage Required: No Information Interpreted: non-clinical & clinical Switchboard Operator Supervisor: Switchboard Operator Supervisor Present (Arabella KENNY) Accompanied by: Self / Same As Patient Allergies No Known Allergies Allergy (Verified 11/10/24 12:25) Is last menstrual period known: Yes Last menstrual period: 10/31/24 HPI Comments Details: Presenting complaining of vulvovaginal itching with no foul odor, no additional symptoms PFSH Medical History FH: colon cancer Obesity (BMI 30.0-34.9) Pain in right elbow Surgical History History of colonoscopy Family History Father Diabetes mellitus Mother Diabetes mellitus HTN (hypertension) Paternal Grandmother Colon cancer Paternal Grandfather Colon cancer Paternal Aunt Colon cancer Brother No problems noted. Brother No problems noted. Sister No problems noted. Sister No problems noted. Other Mental health disorder Substance use disorder Social History Housing: Condominium Alcohol intake: current Alcohol intake frequency: holidays/special occasions only Patient Tobacco Use Status: Never used Tobacco e-Cigarette/Vaping Use: Never Used Second Hand Smoke Exposure: No Current occupational status: employed Cognitive needs: No Hearing needs: No Vision needs: Yes Female Reproductive History Menstrual Age of Menarche: 13 Date of last menstrual period: 10/31/24 Review of Systems Const All systems reviewed & are unremarkable except as noted in HPI and below Physical Exam Vital Signs: BMI result Body Mass Index 28.9 General: Yes no CVA tenderness External Female Exam: normal external appearance and normal appearance of the urethra Speculum Exam - Vagina: normal appearance of the vagina, normal palpation, no lesions and no masses Speculum Exam - Cervix: normal appearance of the cervix, normal palpation, no lesions, no masses and nontender Bimanual exam- vagina & uterus: normal bimanual exam, normal palpation, uterine size normal, normal palpation, uterine shape normal, No Cervical tenderness present and non-tender Bimanual Exam- Adnexa, other: normal adnexae Back/Spine/Pelvis Back: no CVA tenderness Assessment & Plan Assessment & Plan (1) Vulvovaginitis: Code(s): N76.0 - Acute vaginitis Category: Medical Plan: GC/CT, Bacterial Vaginosis panel taken, Terazol 0.8% q.h.s. for 3 days was sent to the patient's pharmacy. The patient was instructed to call if symptoms don't improve in 48 hours. Medications: New terconazole 0.8% 1 appful vaginal BEDTIME 20 grams 0RF 3 days Coding Level of Care Code Est Pt Level 3 (45705) Diagnoses Vulvovaginitis N76.0
[2024-11-10 12:24] VITALS: BMI 28.9
== END 2024-11-10 12:42 | disposition home or self-care (01) ==
PROVIDERS: PCP Internal Medicine; Visit Provider Obstetrics & Gynecology
DX: N76.0 Acute vaginitis (principal)
CPT/HCPCS: 99213

== ENCOUNTER 2024-12-03 13:47 | Outpatient (AMB) | payer OTHER, SELFPAY ==
[2024-12-03 13:52] VITALS: BP 130/90; PULSE 95; O2SAT 98; BMI 30.1
--- NOTE | 2024-12-03 13:52 | HO.NEPHOV_ITS ---
Vital Signs 12/03/24 13:52 Height 5 ft 8 in Weight 198 lb BMI 30.1 BP 130/90 H Blood Pressure Location Lt brachial Position Sitting Pulse 95 Pulse Source Pulse Oximeter Pulse Oximetry (%) 98 Oxygen Delivery Method Room Air Intake Visit Reasons: INP:Abnormal results of kidney function left v.m. Residential Green Building Designer Required: No Accompanied by: Self / Same As Patient Allergies environmental allergies Allergy (Unknown, Verified 12/03/24 13:54) Unknown HPI Comments Details: 39-year-old lady with PMH of type 2 diabetes mellitus controlled without any medications, anxiety on Wellbutrin is here to establish care. 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 No rashes, no joint pains, no fever, no cough, no diarrhea, urine normal. On hydroxyzine for sleep. Diabetes mellitus: Not on any medication HbA1c 6.6 PFSH Medical History FH: colon cancer Obesity (BMI 30.0-34.9) Pain in right elbow Surgical History History of colonoscopy Family History Father Diabetes mellitus Mother Diabetes mellitus HTN (hypertension) Paternal Grandmother Colon cancer Paternal Grandfather Colon cancer Paternal Aunt Colon cancer Brother No problems noted. Brother No problems noted. Sister No problems noted. Sister No problems noted. Other Mental health disorder Substance use disorder Social History Housing: Condominium Alcohol intake: current Alcohol intake frequency: holidays/special occasions only Patient Tobacco Use Status: Never used Tobacco e-Cigarette/Vaping Use: Never Used Second Hand Smoke Exposure: No Current occupational status: employed Cognitive needs: No Hearing needs: No Vision needs: Yes Female Reproductive History Menstrual Age of Menarche: 13 Review of Systems Const Details: Const : no body aches, no fatigue Eyes: no blurry vision and no change in vision ENT: no bleeding gums and no change in voice, no dizziness Card: no chest pain, no shortness of breath Resp: no cough, no excessive phlegm production, no SOB GI: no abdominal pain and no nausea, no vomiting : no hematuria, no urinary frequency and no difficulty voiding Musc: no abnormal gait, no bone pain Neuro: no dizziness, no abnormal gait and no behavioral changes Psych: no behavioral changes and no change in appetite Endo: no change in body appearance, no cold intolerance Physical Exam Vital Signs: Last Vital Signs Pulse 95 12/03/24 13:52 BP 130/90 H 12/03/24 13:52 Pulse Ox 98 12/03/24 13:52 Oxygen Delivery Method Room Air 12/03/24 13:52 BMI result Body Mass Index 30.1 General: Pleasant middle-aged lady sitting comfortable Nutritional Appearance: well nourished and weight slightly on higher side Eyes: normal position, no icterus Neck: No lymphadenopathy, no thyromegaly Resp: bilateral air entry equal, no added sounds present Cardio: normal S1, S2 heard, no murmur heard, no edema GI: soft, nontender, no guarding, no hepatosplenomegaly : bladder normal to inspection, bladder normal to palpation, no renal angle tenderness Skin: no rashes or lesions noted and elasticity normal Neuro: oriented to person, oriented to place, oriented to time and moves all extremities Results Reviewed Nephrology Results: Hgb, (12.0-16.0) 12.8 g/dl 07/31/24 WBC, (4.8-10.8) 7.4 X10*3/uL 07/31/24 Plt Count, (160-400) 418 X10*3/uL H 07/31/24 Sodium, (135-145) 139 mmol/L 11/07/24 Potassium, (3.3-5.1) 3.7 mmol/L 11/07/24 Chloride, (96-108) 106 mmol/L 11/07/24 Carbon Dioxide, (22-29) 25 mmol/L 11/07/24 BUN, (9-16) 10 mg/dL 11/07/24 Creatinine, (0.5-1.4) 1.12 mg/dL 11/07/24 Calcium, (8.4-10.2) 9.5 mg/dL Δ 11/07/24 Urine Protein, (Neg-Trace) Negative mg/dL 07/31/24 Urine Creatinine 263.32 mg/dL 11/07/24 Assessment & Plan Assessment & Plan (1) Chronic kidney disease: Code(s): N18.9 - Chronic kidney disease, unspecified Category: Medical Plan Chronic kidney disease stage IIIa A2: Creatinine 1.12, GFR 55 with microalbuminuria 34.9 microgram/milligram Mom has diabetic kidney disease is on dialysis for about 10-11years, her uncle is also on dialysis from [facility]. Mom has 4 siblings all other okay. Patient has 1 sibling and 3 half siblings and none of them have any medical issues. Diet typically consists of bread and pasta. Drinks Chamomile tea and once in a while herbal tea. She took some herbal diet and supplement in February. Right now we do not have anything to pinpoint at what is causing her loss in GFR or microalbuminuria. I explained her in detail about the progression of renal disease, signs and symptoms. We will proactively evaluate her to see if there is anything that might be contributing by getting hepatitis panel, HIV, THOR, Anca, serum free light chains, SPEP and UPEP, CHUY 2R. If everything comes back negative we will continue to monitor the patient closely in case if she develops any worsening renal dysfunction or proteinuria we will get renal biopsy. Advised her to decrease stress level and benefits of weight loss. Orders: Orders Total Protein Urine Random Today N18.9 - Chronic kidney disease, unspecified Phosphorus Today N18.9 - Chronic kidney disease, unspecified Hepatitis B,C Profile Today N18.9 - Chronic kidney disease, unspecified Complement C3 Today N18.9 - Chronic kidney disease, unspecified Complement C4 Today N18.9 - Chronic kidney disease, unspecified Protein Electrophoresis, Serum Today N18.9 - Chronic kidney disease, unspecified Basic Metabolic Panel 3 Months N18.9 - Chronic kidney disease, unspecified UA and rflx microscopic 3 Months N18.9 - Chronic kidney disease, unspecified Microalbumin, Random (w Creat) 3 Months N18.9 - Chronic kidney disease, unspecified Basic Metabolic Panel Today N18.9 - Chronic kidney disease, unspecified UA and rflx microscopic Today N18.9 - Chronic kidney disease, unspecified Microalbumin, Random (w Creat) Today N18.9 - Chronic kidney disease, uns pecified HIV Ab/Ag Today N18.9 - Chronic kidney disease, unspecified THOR Reflex Titer and Pattern Today N18.9 - Chronic kidney disease, unspecified ANCA Vasculitides Today N18.9 - Chronic kidney disease, unspecified Protein Electrophoresis,Ran Ur Today N18.9 - Chronic kidney disease, unspeci fied [place]/Lambda Light Chain Serum Today N18.9 - Chronic kidney disease, unspecified Phospholipase A2 Receptor Pnl Today N18.9 - Chronic kidney disease, unspecified Total Protein Urine Random 3 Months N18.9 - Chronic kidney disease, unspecified Urine Eosinophil Today N18.9 - Chronic kidney disease, unspecified Coding Level of Care Code New Pt Level 4 (82069) Diagnoses Chronic kidney disease N18.9
== END 2024-12-03 14:29 | disposition home or self-care (01) ==
LOC: HO.HKA 13:48
PROVIDERS: PCP Internal Medicine; Referring Provider Student in an Organized Health Care Education/Training Program; Visit Provider Internal Medicine Critical Care Medicine
DX: N18.9 Chronic kidney disease, unspecified (principal)
CPT/HCPCS: 99204